=== PATIENT | female | born 1950 | race Caucasian/White ===

== ENCOUNTER → 2020-04-10 13:32 | Outpatient (BNVA) | payer BC, SELFPAY | PROVIDERS: PCP Internal Medicine; Referring Provider Internal Medicine; Visit Provider Internal Medicine Cardiovascular Disease | DX: I47.1 Supraventricular tachycardia (principal); I10 Essential (primary) hypertension; E87.5 Hyperkalemia; Z79.899 Other long term (current) drug therapy | CPT/HCPCS: 93005 ==

== ENCOUNTER 2020-04-25 11:26 | Outpatient (REF) | payer BC, SELFPAY ==
[2020-04-25 14:31] LABS: Estimated Average Glucose 140 mg/dL; Hemoglobin A1c % 6.5 %
[2020-04-25 15:08] LABS: Anion Gap 15 (12-20); Blood Urea Nitrogen 22 mg/dL (9-16); Calcium 9.4 mg/dL (8.4-10.2); Carbon Dioxide 28 mmol/L (22-29); Chloride 103 mmol/L (96-108); Estimated Glomerular Filt Rate > 60; Glucose Random 151 mg/dL (60-115); Potassium 5.9 mmol/l (3.3-5.1); Sodium 140 mmol/L (135-145)
== END 2020-04-25 11:27 | disposition home or self-care (01) ==
LOC: HO.HMGCLDS 11:26
PROVIDERS: PCP Internal Medicine; Visit Provider Internal Medicine
DX: I10 Essential (primary) hypertension (principal); E11.9 Type 2 diabetes mellitus without complications
CPT/HCPCS: 80048; 83036

== ENCOUNTER 2020-05-03 09:48 | Outpatient (REF) | payer BC, SELFPAY ==
[2020-05-03 12:00] LABS: Anion Gap 15 (12-20); Carbon Dioxide 24 mmol/L (22-29); Chloride 103 mmol/L (96-108); Potassium 5.7 mmol/l (3.3-5.1); Sodium 136 mmol/L (135-145)
== END 2020-05-03 09:49 | disposition home or self-care (01) ==
LOC: HO.HMGCLDS 09:48
PROVIDERS: PCP Internal Medicine; Visit Provider Internal Medicine
DX: E87.5 Hyperkalemia (principal)
CPT/HCPCS: 80051

== ENCOUNTER 2020-08-05 19:54 | Emergency (ER) | payer MEDICARE, SELFPAY ==
--- NOTE | ~2020-08-05 | CT_ITS ---
EXAMINATION: CT HEAD WITHOUT CONTRAST CT CERVICAL SPINE WITHOUT CONTRAST CLINICAL INFORMATION: Fall. Head laceration. COMPARISON: None. TECHNIQUE: Imaging was performed from the skull base to vertex without intravenous administration of contrast. In addition, helical noncontrast CT imaging was acquired through the cervical spine and source images were reviewed along with axial reconstructions and sagittal and coronal MPRs. [This CT examination was performed using dose optimization techniques as appropriate, variously including the following: *Automated exposure control *Adjustment of mA and/or kV according to patient size (this includes techniques or standardized protocols for targeted exams where dose is matched to indication/reason for exam; i.e. extremities or head) *Use of iterative reconstruction technique] DLP: 1252 mGy-cm FINDINGS: HEAD: Small scalp hematoma in the right frontal region. There is no skull fracture. No intracranial mass, hemorrhage, or midline shift is visualized. The ventricles and sulci are age-appropriate. No extra-axial collections are identified. The paranasal sinuses and mastoid air cells are well aerated. CERVICAL SPINE: There is no evidence of acute cervical spine fracture. Vertebral bodies remain normal in height. Cervical vertebrae have normal alignment. There is multilevel degenerative spondylosis of the cervical spine with disc height narrowing and endplate spurs and facet joint arthrosis No pre- or paravertebral soft tissue abnormality is identified. Limited assessment of the lung apices is unremarkable. CT/CT cervical spine wo con IMPRESSION: 1. No acute intracranial pathology. 2. No CT evidence of acute cervical spine fracture or traumatic subluxation
--- NOTE | ~2020-08-05 | CT_ITS ---
EXAMINATION: CT HEAD WITHOUT CONTRAST CT CERVICAL SPINE WITHOUT CONTRAST CLINICAL INFORMATION: Fall. Head laceration. COMPARISON: None. TECHNIQUE: Imaging was performed from the skull base to vertex without intravenous administration of contrast. In addition, helical noncontrast CT imaging was acquired through the cervical spine and source images were reviewed along with axial reconstructions and sagittal and coronal MPRs. [This CT examination was performed using dose optimization techniques as appropriate, variously including the following: *Automated exposure control *Adjustment of mA and/or kV according to patient size (this includes techniques or standardized protocols for targeted exams where dose is matched to indication/reason for exam; i.e. extremities or head) *Use of iterative reconstruction technique] DLP: 1252 mGy-cm FINDINGS: HEAD: Small scalp hematoma in the right frontal region. There is no skull fracture. No intracranial mass, hemorrhage, or midline shift is visualized. The ventricles and sulci are age-appropriate. No extra-axial collections are identified. The paranasal sinuses and mastoid air cells are well aerated. CERVICAL SPINE: There is no evidence of acute cervical spine fracture. Vertebral bodies remain normal in height. Cervical vertebrae have normal alignment. There is multilevel degenerative spondylosis of the cervical spine with disc height narrowing and endplate spurs and facet joint arthrosis No pre- or paravertebral soft tissue abnormality is identified. Limited assessment of the lung apices is unremarkable. CT/CT head/brain wo con IMPRESSION: 1. No acute intracranial pathology. 2. No CT evidence of acute cervical spine fracture or traumatic subluxation
[2020-08-05 20:07] VITALS: BP 176/63; PULSE 83; RESP 18; TEMP 36.9; O2SAT 97; BMI 32.8
[2020-08-05 20:38] VITALS: BP 142/77; PULSE 88; RESP 16; O2SAT 97
--- NOTE | 2020-08-05 21:23 | ED.FALL ---
HPI - Fall General Chief Complaint: Fall Stated Complaint: Fall/Lump on head Time Seen by Provider: 08/05/20 21:18 Source: patient Mode of arrival: ambulatory Limitations: no limitations History of Present Illness HPI Narrative: 69-year-old female with past medical history of insulin-dependent diabetes type 2, hypertension, hyperlipidemia, SVT, and depression presents with injury to the right forehead with laceration after a fall. Patient states she tripped over an object landed on her head hitting a ceramic tile floor. She does not describe any prodromal events prior to the fall. She does have some tenderness to the right forehead where her laceration and hematoma is however does not have any headache, neck pain, changes in vision, difficulty swallowing, chest pain or pressure, palpitations, shortness breath, abdominal pain, abdominal distention, back pain, dysuria, hematuria, symptoms indicating cauda equina, loss of balance, or edema. MD complaint: fall Onset (ago): hour(s) (Within the hour of arrival) Fall from: standing Fall witnessed: no Place fall occurred: home Loss of consciousness: none Prolonged down time: no Symptoms prior to fall: none Context: tripped/slipped Location of injury: head Severity: mild Severity scale (1-10): 1 Quality: aching Associated symptoms (after fall): denies Related Data Home Medications Medication Instructions Recorded Confirmed ascorbate calcium (vitamin C) 500 500 mg PO DAILY 04/10/20 04/10/20 mg tablet calcium carbonate 500 mg calcium 500 mg PO DAILY 04/10/20 04/10/20 (1,250 mg) tablet cholecalciferol (vitamin D3) 25 25 mcg PO DAILY 04/10/20 04/10/20 mcg (1,000 unit) capsule glipizide 5 mg tablet 5 mg PO DAILY 04/10/20 04/10/20 insulin glargine 100 unit/mL (3 10 unit SUBCUT QPM 04/10/20 04/10/20 mL) subcutaneous pen lisinopril 10 mg tablet 10 mg PO DAILY 04/10/20 04/10/20 magnesium 250 mg tablet 250 mg PO DAILY 04/10/20 04/10/20 metformin 500 mg tablet 500 mg PO BID 04/10/20 04/10/20 multivitamin-ferrous 1 tab PO DAILY 04/10/20 04/10/20 fumarate-folic acid 18 mg-400 mcg tablet omega 5-rby-pce-fish oil 1,200 mg 1,200 cap PO DAILY cap 04/10/20 04/10/20 (144 mg-216 mg) capsule sertraline 100 mg tablet 150 mg PO DAILY tab 04/10/20 04/10/20 simvastatin 40 mg tablet 40 mg PO BEDTIME 04/10/20 04/10/20 vitamin B12 500 mcg-folic acid 400 1 tab PO DAILY 04/10/20 04/10/20 mcg tablet vitamin E 200 unit capsule 200 unit PO DAILY 04/10/20 04/10/20 zinc 50 mg tablet 50 mg PO DAILY 04/10/20 04/10/20 Allergies Allergy/AdvReac Type Severity Reaction Status Date / Time No Known Allergies Allergy Unverified 02/09/20 16:41 [No Known Allergies*] Review of Systems Review of Systems: Constitutional: No Fever, No Chills ENT/Mouth: No Ear Pain, No Hoarseness, No sore throat Eyes: No Eye Pain, No Swelling, No Redness, No Foreign Body Cardiovascular: No Chest Pain, No SOB Respiratory: No Cough, No Dyspnea Gastrointestinal: No Nausea, No Vomiting, No Diarrhea, No abdominal Pain Genitourinary: No Dysuria, No Hematuria Musculoskeletal: No joint pain, No Myalgias, No Joint Swelling Skin: Positive flap laceration to right forehead, positive hematoma right forehead, No rash Neuro: No Weakness, No Numbness, No Paresthesias, No Loss of Consciousness, No Dizziness, No Headache Psych: No Anxiety/Panic, No Depression Heme/Lymph: no easy bruising, no Lymphadenopathy Endocrine: No Polyuria, No Polydipsia Yes all other systems are reviewed and are negative COUNT INCLUDES THE [facility] Past Medical History Attestation statement: The following information was validated with the patient. Source: old records reviewed Medical History HTN (hypertension) SVT (supraventricular tachycardia) Surgical History History of ankle surgery Family History Family History Father CVD (cardiovascular disease) Mother No problems noted. Social History Social History Alcohol intake: never Smoking Status: Light tobacco smoker Use of substances other than those prescribed or required for medical reasons: No Any prior treatment program specific to substance use: No Advance Directives: No Advance Directives Information Provided: No Physical Exam Vital Signs: Vital Signs: Last Vital Signs Temp 98.4 F 08/05/20 20:07 Pulse 88 08/05/20 20:38 Resp 16 08/05/20 20:38 BP 142/77 H 08/05/20 20:38 Pulse Ox 97 08/05/20 20:38 Body Mass Index 32.8 Appearance: Alert. Oriented X3. No acute distress. Eyes: Pupils equal, round and reactive to light. EOMI, sclera nonicteric ENT: Pharynx normal. Trachea and tongue midline, mucous membranes are moist Neck: Normal inspection. Neck supple. No JVD CVS: Normal heart rate and rhythm. Pulses equal to all extremities with brisk capillary refill Respiratory: No respiratory distress. Lung sounds clear to auscultation all lobes, no chest wall tenderness to palpation, even unlabored respirations Abdomen: Soft and nontender. No abdominal tenderness, no CVA tenderness Skin: 3 cm hematoma with 0.5 cm laceration flap irregular to the right forehead, otherwise Skin warm and dry. Normal skin color. Normal skin turgor. Extremities: No lower extremity edema. Strength 5/5 to all extremities, no crepitus or tenderness to joints, no vertebral tenderness to cervical, thoracic and lumbar spine. Neuro: No motor deficit. No sensory deficit. Cranial nerves 2-12 intact, gait well balanced well coordinated NIH Stroke Scale Internal: Initial- Upon Arrival Time: 21:10 Level of Consciousness: Alert Level of Consciousness Questions: Answers both questions correctly Level of Consciousness Commands: Performs both tasks correctly Best Gaze: Normal Visual: No visual loss Facial Palsy: Normal Motor Arm (Right): No drift Motor Arm (Left): No drift Motor Leg (Right): No drift Motor Leg (Left): No drift Limb Ataxia: Absent Sensory: Normal Best Language: No aphasia Dysarthia: Normal Extinction and Inattention: No abnormality Score: 0 Course Course Course Narrative: 69-year-old female with past medical history of insulin-dependent diabetes type 2, hypertension, hyperlipidemia, SVT, and depression presents with injury to the right forehead with laceration after a mechanical fall. Plan of care is for CT scan of head and cervical spine, laceration repair will be with Steri-Strips as this wound is irregular, superficial, and flap like with 3 cm hematoma. Patient resistant for CT scan of cervical spine and head. After detailed discussion regarding plan patient agrees for CT scan of head and neck, does not want EKG or lab values done. She does not have any chest pain, denies prodromal events prior to tripping and falling, has an even regular rhythm of 88, no respiratory distress. States that she feels well with the exception of the bump on her head. She has excepted the Tdap vaccine. CT scan of cervical spine and head negative for acute findings requiring emergent intervention. Wound repair with Steri-Strips, will give concussion protocol instructions. patient verbalized understanding of and agrees to plan of care discharge home. MDM - Fall Differential Diagnosis Differential diagnosis: Likely syncope, fracture, compression fracture and concussion without loss of consciousness Medical Records Attestation: I reviewed the patient's medical records. Imaging Data CT head neck: Attestation: I personally reviewed and interpreted this imaging study as follows: Radiologist's impression: EXAMINATION: CT HEAD WITHOUT CONTRAST CT CERVICAL SPINE WITHOUT CONTRAST CLINICAL INFORMATION: Fall. Head laceration. COMPARISON: None. TECHNIQUE: Imaging was performed from the skull base to vertex without intravenous administration of contrast. In addition, helical noncontrast CT imaging was acquired through the cervical spine and source images were reviewed along with axial reconstructions and sagittal and coronal MPRs. [This CT examination was performed using dose optimization techniques as appropriate, variously including the following: *Automated exposure control *Adjustment of mA and/or kV according to patient size (this includes techniques or standardized protocols for targeted exams where dose is matched to indication/reason for exam; i.e. extremities or head) *Use of iterative reconstruction technique] DLP: 1252 mGy-cm FINDINGS: HEAD: Small scalp hematoma in the right frontal region. There is no skull fracture. No intracranial mass, hemorrhage, or midline shift is visualized. The ventricles and sulci are age-appropriate. No extra-axial collections are identified. The paranasal sinuses and mastoid air cells are well aerated. CERVICAL SPINE: There is no evidence of acute cervical spine fracture. Vertebral bodies remain normal in height. Cervical vertebrae have normal alignment. There is multilevel degenerative spondylosis of the cervical spine with disc height narrowing and endplate spurs and facet joint arthrosis No pre- or paravertebral soft tissue abnormality is identified. Limited assessment of the lung apices is unremarkable. CT/CT cervical spine wo con IMPRESSION: 1. No acute intracranial pathology. 2. No CT evidence of acute cervical spine fracture or traumatic subluxation Discharge Plan Discharge Clinical Impression: Laceration Concussion Qualifiers: Encounter type: initial encounter Loss of consciousness presence/duration: without LOC Qualified Code(s): S06.0X0A - Concussion without loss of consciousness, initial encounter Patient Disposition: Home, Self-Care Instructions: Laceration (ED), Concussion (ED), Post Concussion Syndrome (ED) Additional Instructions: You were evaluated for head trauma with laceration sustained from a fall. We repaired the laceration with Steri-Strips. Please keep Steri-Strips in place until they fall off. CT scan of your head and neck are negative for acute findings. Your injuries are highly suspicious for concussion. Please follow concussion protocol. You must follow-up with primary care physician within the next week for further follow-up. If you have any symptoms including but not limited to dizziness, lightheadedness, loss of balance, nausea, vomiting, changes in vision, stroke-like symptoms or any other concerning symptoms please return to the emergency department for immediate evaluation. Thank you for choosing this emergency department for evaluation. Please follow-up with primary care physician as needed. Return to the emergency department for any new, concerning, or worsening symptoms. Prescriptions: No Action lisinopril 10 mg tablet 10 mg PO DAILY RF: 0 simvastatin 40 mg tablet 40 mg PO BEDTIME RF: 0 metformin 500 mg tablet 500 mg PO BID RF: 0 glipizide 5 mg tablet 5 mg PO DAILY RF: 0 sertraline 100 mg tablet 150 mg PO DAILY RF: 0 Lantus Solostar U-100 Insulin 100 unit/mL (3 mL) insulin pen 10 unit subcut QPM RF: 0 cholecalciferol (vitamin D3) 25 mcg (1,000 unit) capsule 25 mcg PO DAILY RF: 0 magnesium 250 mg tablet 250 mg PO DAILY RF: 0 zinc 50 mg tablet 50 mg PO DAILY RF: 0 vitamin E 200 unit capsule 200 unit PO DAILY RF: 0 ascorbate calcium (vitamin C) 500 mg tablet 500 mg PO DAILY RF: 0 vitamin C98-pfwaa acid 500-400 mcg tablet 1 tab PO DAILY RF: 0 Centrum Complete 18-400 mg-mcg tablet 1 tab PO DAILY RF: 0 omega 7-dqy-tnj-fish oil [Fish Oil] 1,200 (144-216) mg capsule 1,200 cap PO DAILY RF: 0 calcium carbonate [Calcium 500] 500 mg calcium (1,250 mg) tablet 500 mg PO DAILY RF: 0 Discharge Date/Time: 08/05/20 22:27
== END 2020-08-05 22:27 | disposition home or self-care (01) ==
PROVIDERS: Emergency Provider Internal Medicine; PCP Internal Medicine
DX: S01.81XA Laceration without foreign body of other part of head, initial encounter (principal); S06.0X0A Concussion without loss of consciousness, initial encounter; M54.2 Cervicalgia; E11.9 Type 2 diabetes mellitus without complications; I10 Essential (primary) hypertension; W01.0XXA Fall on same level from slipping, tripping and stumbling without subsequent striking against object, initial encounter; Y93.9 Activity, unspecified; Y92.009 Unspecified place in unspecified non-institutional (private) residence as the place of occurrence of the external cause; Y99.9 Unspecified external cause status; Z79.899 Other long term (current) drug therapy; F17.200 Nicotine dependence, unspecified, uncomplicated; Z71.6 Tobacco abuse counseling; Z79.4 Long term (current) use of insulin
CPT/HCPCS: 70450; 72125; 90471; 90715; 99284

== ENCOUNTER 2020-09-10 11:54 | Outpatient (REF) | payer MEDICARE, SELFPAY ==
[2020-09-10 14:11] LABS: MANUAL DIFF FLAG NO
[2020-09-10 14:24] LABS: Basophils Percent Auto 0.8 % (0-2); Eosinophils Absolute Auto 0.2 X10*3/uL (0.0-0.4); Eosinophils Percent Auto 3.8 % (0-4); Hematocrit 38.7 % (37-47); Hemoglobin 12.6 g/dl (12.0-16.0); Imm Gran Abs Auto 0.01 X10*3/uL (0.00-0.03); Imm Gran Pct Auto 0.2 % (0.0-0.4); Lymphocytes Absolute Auto 1.4 X10*3/uL (1.2-4.9); Lymphocytes Percent Auto 30.6 % (20-40); Mean Corpuscular HGB Conc 32.6 g/dl (31.0-35.0); Mean Corpuscular Hemoglobin 28.1 pg (27.0-33.0); Mean Corpuscular Volume 86.2 fL (80-98); Mean Platelet Volume 10.4 fL (9.4-12.3); Monocytes Absolute Auto 0.4 X10*3/uL (0.1-1.2); Monocytes Percent Auto 8.3 % (2-11); Neutrophils Absolute Auto 2.7 X10*3/uL (2.0-8.3); Neutrophils Percent Auto 56.3 % (45-73); Platelet Count 240 X10*3/uL (160-400); Red Blood Count 4.49 X10*6/uL (4.20-5.50); Red Cell Distribution Width 14.1 % (11.0-16.0); White Blood Count 4.7 X10*3/uL (4.8-10.8)
[2020-09-10 14:28] LABS: Estimated Average Glucose 192 mg/dL; Hemoglobin A1c % 8.3 %
[2020-09-10 14:41] LABS: Alanine Aminotransferase 28 U/L (0-31); Albumin Level 4.7 g/dL (3.5-5.0); Alkaline Phosphatase 64 U/L (39-117); Anion Gap 19 (12-20); Aspartate Amino Transferase 25 U/L (5-31); Bilirubin Total 0.5 mg/dL (0.0-1.0); Blood Urea Nitrogen 25 mg/dL (9-16); Calcium 9.7 mg/dL (8.4-10.2); Carbon Dioxide 24 mmol/L (22-29); Chloride 98 mmol/L (96-108); Estimated Glomerular Filt Rate 53; Glucose Random 286 mg/dL (60-115); Potassium 5.4 mmol/L (3.3-5.1); Sodium 136 mmol/L (135-145); Total Protein 7.6 g/dL (6.5-8.0)
[2020-09-10 14:47] LABS: Creatinine Urine 183.54 mg/dL; Microalbum/Creatinine Ratio Ur 21.7 ug/mg cr
== END 2020-09-10 11:55 | disposition home or self-care (01) ==
LOC: HO.HMGCLDS 11:54
PROVIDERS: PCP Internal Medicine; Visit Provider Internal Medicine
DX: I10 Essential (primary) hypertension (principal); E11.9 Type 2 diabetes mellitus without complications; E78.00 Pure hypercholesterolemia, unspecified
CPT/HCPCS: 36415; 80053; 82043; 83036; 85025

== ENCOUNTER 2021-02-18 10:56 | Outpatient (REF) | payer MEDICARE, SELFPAY ==
[2021-02-18 13:42] LABS: MANUAL DIFF FLAG NO
[2021-02-18 14:02] LABS: Basophils Percent Auto 0.4 % (0-2); Eosinophils Absolute Auto 0.1 X10*3/uL (0.0-0.4); Eosinophils Percent Auto 1.7 % (0-4); Hematocrit 39.5 % (37-47); Hemoglobin 12.5 g/dl (12.0-16.0); Imm Gran Abs Auto 0.02 X10*3/uL (0.00-0.03); Imm Gran Pct Auto 0.4 % (0.0-0.4); Lymphocytes Absolute Auto 1.1 X10*3/uL (1.2-4.9); Lymphocytes Percent Auto 22.6 % (20-40); Mean Corpuscular HGB Conc 31.6 g/dl (31.0-35.0); Mean Corpuscular Hemoglobin 28.2 pg (27.0-33.0); Mean Corpuscular Volume 89.2 fL (80-98); Mean Platelet Volume 10.3 fL (9.4-12.3); Monocytes Absolute Auto 0.3 X10*3/uL (0.1-1.2); Monocytes Percent Auto 6.6 % (2-11); Neutrophils Absolute Auto 3.3 X10*3/uL (2.0-8.3); Neutrophils Percent Auto 68.3 % (45-73); Platelet Count 239 X10*3/uL (160-400); Red Blood Count 4.43 X10*6/uL (4.20-5.50); Red Cell Distribution Width 14.4 % (11.0-16.0); White Blood Count 4.8 X10*3/uL (4.8-10.8)
[2021-02-18 14:10] LABS: Estimated Average Glucose 203 mg/dL; Hemoglobin A1c % 8.7 %
[2021-02-18 14:20] LABS: Creatinine Urine 125.25 mg/dL; Microalbum/Creatinine Ratio Ur 23.9 ug/mg cr
[2021-02-18 14:36] LABS: Alanine Aminotransferase 28 U/L (0-31); Albumin Level 4.6 g/dL (3.5-5.0); Alkaline Phosphatase 56 U/L (39-117); Anion Gap 16 (12-20); Aspartate Amino Transferase 22 U/L (5-31); Bilirubin Total 0.5 mg/dL (0.0-1.0); Blood Urea Nitrogen 23 mg/dL (9-16); Calcium 9.6 mg/dL (8.4-10.2); Carbon Dioxide 24 mmol/L (22-29); Chloride 103 mmol/L (96-108); Estimated Glomerular Filt Rate > 60; Glucose Random 242 mg/dL (60-115); Potassium 5.4 mmol/L (3.3-5.1); Sodium 138 mmol/L (135-145); Total Protein 7.4 g/dL (6.5-8.0)
== END 2021-02-18 10:57 | disposition home or self-care (01) ==
LOC: HO.HMGCLDS 10:56
PROVIDERS: PCP Internal Medicine; Visit Provider Internal Medicine
DX: I12.9 Hypertensive chronic kidney disease with stage 1 through stage 4 chronic kidney disease, or unspecified chronic kidney disease (principal); N18.9 Chronic kidney disease, unspecified; E11.22 Type 2 diabetes mellitus with diabetic chronic kidney disease
CPT/HCPCS: 36415; 80053; 82043; 83036; 85025

== ENCOUNTER → 2021-04-04 13:06 | Outpatient (BNVA) | payer MEDICARE, SELFPAY | PROVIDERS: PCP Internal Medicine; Referring Provider Internal Medicine; Visit Provider Internal Medicine Cardiovascular Disease | DX: I47.1 Supraventricular tachycardia (principal); I10 Essential (primary) hypertension; E78.5 Hyperlipidemia, unspecified | CPT/HCPCS: 93005; 99212 ==

== ENCOUNTER 2021-04-22 10:59 | Outpatient (REF) | payer MEDICARE, SELFPAY ==
[2021-04-22 14:12] LABS: Anion Gap 18 (12-20); Blood Urea Nitrogen 24 mg/dL (9-16); Calcium 9.2 mg/dL (8.4-10.2); Carbon Dioxide 20 mmol/L (22-29); Chloride 106 mmol/L (96-108); Estimated Glomerular Filt Rate 58; Glucose Random 297 mg/dL (60-115); Potassium 4.6 mmol/L (3.3-5.1); Sodium 139 mmol/L (135-145)
== END 2021-04-22 11:00 | disposition home or self-care (01) ==
LOC: HO.HMGCLDS 10:59
PROVIDERS: Visit Provider Internal Medicine Cardiovascular Disease
DX: I10 Essential (primary) hypertension (principal)
CPT/HCPCS: 36415; 80048

== ENCOUNTER 2021-07-09 10:24 | Outpatient (REF) | payer MEDICARE, SELFPAY ==
[2021-07-09 11:34] LABS: MANUAL DIFF FLAG NO
[2021-07-09 11:46] LABS: Basophils Percent Auto 0.7 % (0-2); Eosinophils Absolute Auto 0.2 X10*3/uL (0.0-0.4); Eosinophils Percent Auto 3.2 % (0-4); Hematocrit 40.1 % (37.0-47.0); Hemoglobin 12.6 g/dl (12.0-16.0); Imm Gran Abs Auto 0.02 X10*3/uL (0.00-0.03); Imm Gran Pct Auto 0.3 % (0.0-0.4); Lymphocytes Absolute Auto 1.2 X10*3/uL (1.2-4.9); Lymphocytes Percent Auto 20.5 % (20-40); Mean Corpuscular HGB Conc 31.4 g/dl (31.0-35.0); Mean Corpuscular Hemoglobin 26.8 pg (27.0-33.0); Mean Corpuscular Volume 85.3 fL (80.0-98.0); Mean Platelet Volume 10.3 fL (9.4-12.3); Monocytes Absolute Auto 0.4 X10*3/uL (0.1-1.2); Monocytes Percent Auto 6.9 % (2-11); Neutrophils Percent Auto 68.4 % (45-73); Platelet Count 230 X10*3/uL (160-400); Red Cell Distribution Width 13.4 % (11.0-16.0); White Blood Count 5.9 X10*3/uL (4.8-10.8)
[2021-07-09 12:18] LABS: Alanine Aminotransferase 37 U/L (0-31); Albumin Level 4.4 g/dL (3.5-5.0); Alkaline Phosphatase 80 U/L (39-117); Anion Gap 13 (12-20); Aspartate Amino Transferase 29 U/L (5-31); Bilirubin Total 0.4 mg/dL (0.0-1.0); Blood Urea Nitrogen 20 mg/dL (9-16); Calcium 9.4 mg/dL (8.4-10.2); Carbon Dioxide 29 mmol/L (22-29); Chloride 98 mmol/L (96-108); Cholesterol 228 mg/dL; Estimated Glomerular Filt Rate 59; Glucose Fasting 338 mg/dL (60-99); HDL Cholesterol 53 mg/dL; LDL Cholesterol Calculated 125 mg/dl; Potassium 5.1 mmol/L (3.3-5.1); Sodium 135 mmol/L (135-145); Total Protein 7.3 g/dL (6.5-8.0); Triglycerides 253 mg/dL
[2021-07-09 12:22] LABS: Estimated Average Glucose 295 mg/dL; Hemoglobin A1c % 11.9 %
[2021-07-09 12:31] LABS: Creatinine Urine 159.19 mg/dL; Microalbum/Creatinine Ratio Ur 65.3 ug/mg cr
== END 2021-07-09 10:25 | disposition home or self-care (01) ==
LOC: HO.HMGCLDS 10:24
PROVIDERS: PCP Internal Medicine; Visit Provider Internal Medicine
DX: E11.9 Type 2 diabetes mellitus without complications (principal); E78.00 Pure hypercholesterolemia, unspecified; I10 Essential (primary) hypertension
CPT/HCPCS: 36415; 80053; 80061; 82043; 83036; 85025

== ENCOUNTER 2021-12-23 11:35 | Outpatient (REF) | payer MEDICARE, SELFPAY ==
[2021-12-23 15:14] LABS: Estimated Average Glucose 223 mg/dL; Hemoglobin A1c % 9.4 %
[2021-12-23 15:23] LABS: Alanine Aminotransferase 39 U/L (0-31); Albumin Level 4.7 g/dL (3.5-5.0); Alkaline Phosphatase 59 U/L (39-117); Anion Gap 19 (12-20); Aspartate Amino Transferase 29 U/L (5-31); Bilirubin Total 0.5 mg/dL (0.0-1.0); Blood Urea Nitrogen 21 mg/dL (9-16); Calcium 9.5 mg/dL (8.4-10.2); Carbon Dioxide 21 mmol/L (22-29); Chloride 103 mmol/L (96-108); Estimated Glomerular Filt Rate > 60; Glucose Random 296 mg/dL (60-115); Potassium 4.8 mmol/L (3.3-5.1); Sodium 138 mmol/L (135-145); Total Protein 7.6 g/dL (6.5-8.0)
[2021-12-23 15:35] LABS: Creatinine Urine 239.06 mg/dL; Microalbum/Creatinine Ratio Ur 44.7 ug/mg cr
== END 2021-12-23 11:36 | disposition home or self-care (01) ==
LOC: HO.HMGCLDS 11:35
PROVIDERS: PCP Internal Medicine; Visit Provider Internal Medicine
DX: E11.9 Type 2 diabetes mellitus without complications (principal); I10 Essential (primary) hypertension
CPT/HCPCS: 36415; 80053; 82043; 83036

== ENCOUNTER 2022-04-02 08:59 | Outpatient (REF) | payer MEDICARE, SELFPAY ==
[2022-04-02 11:24] LABS: MANUAL DIFF FLAG NO
[2022-04-02 11:31] LABS: Basophils Percent Auto 0.6 % (0-2); Eosinophils Absolute Auto 0.1 X10*3/uL (0.0-0.4); Eosinophils Percent Auto 2.6 % (0-4); Hematocrit 41.7 % (37.0-47.0); Hemoglobin 13.1 g/dl (12.0-16.0); Imm Gran Abs Auto 0.01 X10*3/uL (0.00-0.03); Imm Gran Pct Auto 0.2 % (0.0-0.4); Lymphocytes Absolute Auto 1.4 X10*3/uL (1.2-4.9); Lymphocytes Percent Auto 28.5 % (20-40); Mean Corpuscular HGB Conc 31.4 g/dl (31.0-35.0); Mean Corpuscular Hemoglobin 27.9 pg (27.0-33.0); Mean Corpuscular Volume 88.9 fL (80.0-98.0); Mean Platelet Volume 10.7 fL (9.4-12.3); Monocytes Absolute Auto 0.4 X10*3/uL (0.1-1.2); Monocytes Percent Auto 7.1 % (2-11); Platelet Count 228 X10*3/uL (160-400); Red Blood Count 4.69 X10*6/uL (4.20-5.50); Red Cell Distribution Width 13.9 % (11.0-16.0); White Blood Count 4.9 X10*3/uL (4.8-10.8)
[2022-04-02 11:45] LABS: Estimated Average Glucose 148 mg/dL; Hemoglobin A1c % 6.8 %
[2022-04-02 12:03] LABS: Alanine Aminotransferase 21 U/L (0-31); Albumin Level 4.6 g/dL (3.5-5.0); Alkaline Phosphatase 62 U/L (39-117); Anion Gap 18 (12-20); Aspartate Amino Transferase 22 U/L (5-31); Bilirubin Total 0.3 mg/dL (0.0-1.0); Blood Urea Nitrogen 12 mg/dL (9-16); Calcium 9.1 mg/dL (8.4-10.2); Carbon Dioxide 24 mmol/L (22-29); Chloride 104 mmol/L (96-108); Cholesterol 166 mg/dL; Estimated Glomerular Filt Rate > 60; Glucose Fasting 102 mg/dL (60-99); HDL Cholesterol 55 mg/dL; LDL Cholesterol Calculated 76 mg/dl; Potassium 4.6 mmol/L (3.3-5.1); Sodium 141 mmol/L (135-145); Total Protein 7.4 g/dL (6.5-8.0); Triglycerides 179 mg/dL
[2022-04-02 12:18] LABS: Microalbum/Creatinine Ratio Ur 69.4 ug/mg cr
== END 2022-04-02 09:00 | disposition home or self-care (01) ==
LOC: HO.HMGCLDS 08:59
PROVIDERS: PCP Internal Medicine; Visit Provider Internal Medicine
DX: E11.9 Type 2 diabetes mellitus without complications (principal); I10 Essential (primary) hypertension; E78.5 Hyperlipidemia, unspecified
CPT/HCPCS: 36415; 80053; 80061; 82043; 83036; 85025

== ENCOUNTER → 2022-04-07 12:48 | Outpatient (BNVA) | payer MEDICARE, SELFPAY | PROVIDERS: PCP Internal Medicine; Referring Provider Internal Medicine; Visit Provider Internal Medicine Cardiovascular Disease | DX: I47.1 Supraventricular tachycardia (principal); I10 Essential (primary) hypertension | CPT/HCPCS: 93005; 99212 ==

== ENCOUNTER 2022-08-11 11:31 | Outpatient (REF) | payer MEDICARE, SELFPAY ==
[2022-08-11 14:35] LABS: Estimated Average Glucose 143 mg/dL; Hemoglobin A1c % 6.6 %
[2022-08-11 14:51] LABS: Alanine Aminotransferase 21 U/L (0-31); Albumin Level 4.8 g/dL (3.5-5.0); Alkaline Phosphatase 62 U/L (39-117); Anion Gap 17 (12-20); Aspartate Amino Transferase 22 U/L (5-31); Bilirubin Total 0.4 mg/dL (0.0-1.0); Blood Urea Nitrogen 22 mg/dL (9-16); Calcium 9.6 mg/dL (8.4-10.2); Carbon Dioxide 26 mmol/L (22-29); Chloride 102 mmol/L (96-108); Estimated Glomerular Filt Rate > 60; Glucose Random 144 mg/dL (60-115); Potassium 5.5 mmol/L (3.3-5.1); Sodium 139 mmol/L (135-145); Total Protein 7.6 g/dL (6.5-8.0)
[2022-08-11 15:02] LABS: Creatinine Urine 216.77 mg/dL; Microalbum/Creatinine Ratio Ur 23.5 ug/mg cr
== END 2022-08-11 11:32 | disposition home or self-care (01) ==
LOC: HO.HMGCLDS 11:31
PROVIDERS: PCP Internal Medicine; Visit Provider Internal Medicine
DX: E11.9 Type 2 diabetes mellitus without complications (principal); I10 Essential (primary) hypertension
CPT/HCPCS: 36415; 80053; 82043; 83036

== ENCOUNTER 2022-11-03 12:14 | Outpatient (REF) | payer MEDICARE, SELFPAY ==
[2022-11-03 14:22] LABS: Anion Gap 14 (12-20); Blood Urea Nitrogen 23 mg/dL (9-16); Calcium 9.8 mg/dL (8.4-10.2); Carbon Dioxide 27 mmol/L (22-29); Chloride 103 mmol/L (96-108); Estimated Glomerular Filt Rate > 60; Glucose Random 136 mg/dL (60-115); Sodium 139 mmol/L (135-145)
[2022-11-03 14:23] LABS: Estimated Average Glucose 137 mg/dL; Hemoglobin A1c % 6.4 %
== END 2022-11-03 12:15 | disposition home or self-care (01) ==
LOC: HO.HMGCLDS 12:14
PROVIDERS: PCP Internal Medicine; Visit Provider Internal Medicine
DX: E11.9 Type 2 diabetes mellitus without complications (principal); I10 Essential (primary) hypertension
CPT/HCPCS: 36415; 80048; 83036

== ENCOUNTER 2023-03-03 12:34 | Outpatient (REF) | payer MEDICARE, SELFPAY | END 2023-03-03 12:35 | disposition home or self-care (01) | LOC: HO.HMGCLDS 12:34 | PROVIDERS: PCP Internal Medicine; Visit Provider Internal Medicine | DX: I10 Essential (primary) hypertension (principal); E11.9 Type 2 diabetes mellitus without complications; E78.00 Pure hypercholesterolemia, unspecified | CPT/HCPCS: 36415; 80053; 80061; 82043; 82570; 83036; 85025 ==

== ENCOUNTER 2023-04-20 12:42 | Outpatient (AMB) | payer MEDICARE, SELFPAY ==
--- NOTE | 2023-04-20 13:02 | A.OFFVIS_ITS ---
Intake Vital Signs 04/20/23 13:03 04/20/23 13:03 Height 5 ft 7 in 5 ft 7 in Weight 207 lb 3.752 oz BMI 32.5 BP 140/72 H Blood Pressure Location Lt brachial Lt brachial Position Sitting Sitting Pulse 75 Intake Visit Reasons: 1 year fu Intake Note: 1 year follow-up feeling good Receivables Specialist Required: No Allergies No Known Allergies [No Known Allergies*] Allergy (Unverified 02/09/20 16:41) Medication List - Last Reconciled 04/20/23 by Dain Siddiqui MD amlodipine 5 mg PO DAILY ascorbate calcium (vitamin C) 500 mg PO DAILY atorvastatin 20 mg PO DAILY calcium carbonate (Calcium 500) 500 mg PO DAILY cholecalciferol (vitamin D3) 25 mcg PO DAILY glipizide 5 mg PO DAILY insulin glargine (Lantus Solostar U-100 Insulin) 10 units subcut QPM magnesium 250 mg PO DAILY magnesium 250 mg PO DAILY metformin ER 750 mg PO BID gcaqvfuzgdqz-zrgx-mmtdc acid 18-400 mg-mcg (Centrum Complete) 1 tab PO DAILY omega 9-eok-fxh-fish oil 1,200 (144-216) mg (Fish Oil) 1,200 caps PO DAILY sertraline 150 mg PO DAILY venlafaxine ER 150 mg PO DAILY vitamin R68-svuqh acid 500-400 mcg 1 tab PO DAILY vitamin E 200 units PO DAILY zinc 50 mg PO DAILY HPI HPI Comments History of Present Illness Details Tonic comes for follow-up. She has been doing very well from cardiac perspective. No episodes of SVT with no episodes of rapid heart rate or palpitations. She has been monitor EKG on a daily basis. Also a blood pressure is well controlled as per her. She denies any exertional chest pain or shortness of breath. Remains very active. Denies any lightheadedness, syncope. [facility] Medical History Hyperlipidemia Diabetes SVT (supraventricular tachycardia) HTN (hypertension) Surgical History History of ankle surgery Family History Father CVD (cardiovascular disease) Mother No problems noted. Alcohol intake: never Review of Systems Const Denies chills, Denies fatigue, Denies fever(s), Denies frequent falls, Denies weakness, Denies weight gain and Denies weight loss ENT Denies dizziness Card Denies chest pain, Denies leg edema, Denies lightheadedness, Denies palpitations, Denies dyspnea, Denies dyspnea on exertion, Denies orthopnea and Denies other (loss of consciousness) Resp Denies cough, Denies dyspnea and Denies dyspnea on exertion GI Denies hematochezia and Denies change in stool character Musc Denies abnormal gait, Denies muscle weakness, Denies numbness, Denies radiating pain into limb and Denies tingling Neuro Denies abnormal gait, Denies dizziness, Denies frequent falls, Denies numbness, Denies tingling and Denies weakness Endo Denies fatigue and Denies palpitations Physical Exam Vital Signs: Last Vital Signs Pulse 75 04/20/23 13:03 BP 140/72 H 04/20/23 13:03 BMI result Body Mass Index 32.5 Const General: cooperative, healthy appearing, comfortable, no acute distress, alert and awake Nutritional Appearance: obese Orientation/consciousness: patient oriented x3 Limitations: no limitations Neck Neck: Yes normal visual inspection, Yes trachea midline, Yes supple and Yes no JVD Chest Chest palpation & inspection: normal inspection of the chest Resp Effort & Inspection: normal respiratory effort Auscultation: clear to auscultation bilaterally Cardio Jugular venous distension: no JVD Palpation: normal PMI Rate: regular rate Rhythm: regular rhythm Heart sounds: S1 normal heart sound present, S2 normal heart sound present and Other heart sounds present Peripheral pulses: Peripheral pulses 2+ throughout GI Inspection: Yes obesity Auscultation: normal bowel sounds Skin General skin exam: no rashes or lesions noted Neuro General: patient oriented x3 and no focal motor deficits Extrem General: Yes no clubbing, cyanosis or edema Psych Appearance: grossly normal Office Procedures EKG Details: EKG shows normal sinus rhythm normal EKG at 75 beats per minute [id number], Complete Assessment & Plan Assessment & Plan (1) SVT (supraventricular tachycardia): Code(s): I47.1 - Supraventricular tachycardia Plan: Supraventricular tachycardia which highly symptomatic but has remained suppressed without any rate lowering medication. She has done well with management of SVT. Discussed vagal maneuvers with her again. Discussed about avoidance of stimulants. Advised to call me with any new symptoms. No change in therapy at this point in time. (2) HTN (hypertension): Code(s): I10 - Essential (primary) hypertension Plan: Hypertension, borderline elevated today. Although she says at home a blood pressures was generally well controlled. She has no current exertional symptoms. Continue aggressive vascular risk factor modification. Currently on statin therapy with target goal LDL less than 70 mg/dL being pursue 3 our office. Continue aggressive management diabetes goal hemoglobin A1c less than 7%. Encouraged to continue to participate in physical activity as tolerated. Advised to call with any exertional symptoms. Follow up in the clinic in 1 year's time, sooner p.r.n.. Thank you for allowing me to partake in the care Coding Level of Care Code Est Pt Level 4 (02218) Diagnoses SVT (supraventricular tachycardia) I47.1 HTN (hypertension) I10 CPT Codes EKG - CPT: 84257-[id number], Complete ([id number])
[2023-04-20 13:03] VITALS: BP 140/72; PULSE 75; BMI 32.5
--- NOTE | 2023-04-20 13:03 | A.OFFVIS_ITS ---
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 Required: No Allergies No Known Allergies [No Known Allergies*] Allergy (Unverified 02/09/20 16:41) Medication List - Last Reconciled 04/20/23 by Dain Siddiqui MD amlodipine 5 mg PO DAILY ascorbate calcium (vitamin C) 500 mg PO DAILY atorvastatin 20 mg PO DAILY calcium carbonate (Calcium 500) 500 mg PO DAILY cholecalciferol (vitamin D3) 25 mcg PO DAILY glipizide 5 mg PO DAILY insulin glargine (Lantus Solostar U-100 Insulin) 10 units subcut QPM magnesium 250 mg PO DAILY magnesium 250 mg PO DAILY metformin ER 750 mg PO BID ssqobjjulcka-osoi-slbid acid 18-400 mg-mcg (Centrum Complete) 1 tab PO DAILY omega 9-ymw-tyq-fish oil 1,200 (144-216) mg (Fish Oil) 1,200 caps PO DAILY sertraline 150 mg PO DAILY venlafaxine ER 150 mg PO DAILY vitamin G39-boeem acid 500-400 mcg 1 tab PO DAILY vitamin E 200 units PO DAILY zinc 50 mg PO DAILY [facility] Medical History Diabetes HTN (hypertension) Hyperlipidemia SVT (supraventricular tachycardia) Surgical History History of ankle surgery Family History Father CVD (cardiovascular disease) Mother No problems noted. Alcohol intake: never Review of Systems Const Denies chills, Denies fatigue, Denies fever(s), Denies frequent falls, Denies weakness, Denies weight gain and Denies weight loss ENT Denies dizziness Card Denies chest pain, Denies leg edema, Denies lightheadedness, Denies palpitations, Denies dyspnea, Denies dyspnea on exertion, Denies orthopnea and Denies other (loss of consciousness) Resp Denies cough, Denies dyspnea and Denies dyspnea on exertion GI Denies hematochezia and Denies change in stool character Musc Denies abnormal gait, Denies muscle weakness, Denies numbness, Denies radiating pain into limb and Denies tingling Neuro Denies abnormal gait, Denies dizziness, Denies frequent falls, Denies numbness, Denies tingling and Denies weakness Endo Denies fatigue and Denies palpitations Physical Exam Vital Signs: Last Vital Signs Pulse 75 04/20/23 13:03 BP 140/72 H 04/20/23 13:03 BMI result Body Mass Index 32.5 Coding
== END 2023-04-20 13:30 | disposition home or self-care (01) ==
PROVIDERS: Visit Provider Internal Medicine Cardiovascular Disease
DX: I47.1 Supraventricular tachycardia (principal); I10 Essential (primary) hypertension
CPT/HCPCS: 93010; 99214

== ENCOUNTER → 2023-04-20 12:42 | Outpatient (BNVA) | payer MEDICARE, SELFPAY | PROVIDERS: Visit Provider Internal Medicine Cardiovascular Disease | DX: I47.10 Supraventricular tachycardia, unspecified (principal); I10 Essential (primary) hypertension | CPT/HCPCS: 93005; 99212 ==

== ENCOUNTER 2023-06-30 13:16 | Outpatient (REF) | payer MEDICARE, SELFPAY ==
[2023-06-30 16:23] LABS: MANUAL DIFF FLAG NO
[2023-06-30 16:31] LABS: Basophils Percent Auto 0.8 % (0-2); Eosinophils Absolute Auto 0.1 X10*3/uL (0.0-0.4); Eosinophils Percent Auto 1.9 % (0-4); Hematocrit 39.4 % (37.0-47.0); Hemoglobin 12.8 g/dl (12.0-16.0); Imm Gran Abs Auto 0.02 X10*3/uL (0.00-0.03); Imm Gran Pct Auto 0.4 % (0.0-0.4); Lymphocytes Absolute Auto 1.5 X10*3/uL (1.2-4.9); Lymphocytes Percent Auto 29.9 % (20-40); Mean Corpuscular HGB Conc 32.5 g/dl (31.0-35.0); Mean Corpuscular Hemoglobin 28.8 pg (27.0-33.0); Mean Corpuscular Volume 88.5 fL (80.0-98.0); Monocytes Absolute Auto 0.3 X10*3/uL (0.1-1.2); Monocytes Percent Auto 6.8 % (2-11); Neutrophils Absolute Auto 2.9 x10*3/uL (2.0-8.3); Neutrophils Percent Auto 60.2 % (45-73); Platelet Count 221 X10*3/uL (160-400); Red Blood Count 4.45 X10*6/uL (4.20-5.50); Red Cell Distribution Width 14.2 % (11.0-16.0); White Blood Count 4.9 X10*3/uL (4.8-10.8)
[2023-06-30 16:43] LABS: Creatinine Urine 119.35 mg/dL; Microalbum/Creatinine Ratio Ur 43.5 ug/mg cr (<30)
[2023-06-30 16:44] LABS: Alanine Aminotransferase 20 U/L (0-31); Albumin Level 4.5 g/dL (3.5-5.0); Alkaline Phosphatase 61 U/L (39-117); Anion Gap 15 (12-20); Aspartate Amino Transferase 20 U/L (5-31); Bilirubin Total 0.3 mg/dL (0.0-1.0); Blood Urea Nitrogen 22 mg/dL (9-16); Calcium 9.6 mg/dL (8.4-10.2); Carbon Dioxide 27 mmol/L (22-29); Chloride 102 mmol/L (96-108); Estimated Glomerular Filt Rate > 60; Glucose Random 111 mg/dL (60-115); Potassium 4.9 mmol/L (3.3-5.1); Sodium 139 mmol/L (135-145); Total Protein 7.4 g/dL (6.5-8.0)
[2023-06-30 16:57] LABS: Estimated Average Glucose 143 mg/dL; Hemoglobin A1c % 6.6 % (<6.0)
== END 2023-06-30 13:17 | disposition home or self-care (01) ==
LOC: HO.HMGCLDS 13:16
PROVIDERS: PCP Internal Medicine; Visit Provider Internal Medicine
DX: E11.9 Type 2 diabetes mellitus without complications (principal); I10 Essential (primary) hypertension; K21.9 Gastro-esophageal reflux disease without esophagitis
CPT/HCPCS: 36415; 80053; 82043; 82570; 83036; 85025

== ENCOUNTER 2023-07-10 13:57 | Outpatient (AMB) | payer MEDICARE, SELFPAY ==
[2023-07-10 13:58] VITALS: BP 160/80; PULSE 92; TEMP 36.3; O2SAT 96; BMI 32.4
--- NOTE | 2023-07-10 13:58 | AM.OFFWIN_ITS ---
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 She states she got out of bed to use the bathroom and tripped on an object on the floor causing her to fall forward and hit her head on the floor. She mostly hit her right eye but she is not sure what she hit her eye on. She reports some blurry vision but denies any vision loss. She denies any headaches or nausea/vomiting. She feels as though there is something stuck in her eye. FOR[facility]LY [facility], LATER [facility] Medical History Hyperlipidemia Diabetes SVT (supraventricular tachycardia) HTN (hypertension) Surgical History History of ankle surgery Family History Father CVD (cardiovascular disease) Mother No problems noted. Social History Alcohol intake: never Patient Tobacco Use Status: Never used Tobacco Review of Systems Const All systems reviewed & are unremarkable except as noted in HPI and below Reports no additional complaints Eyes Reports no additional complaints ENT Reports no additional complaints Card Reports no additional complaints Resp Reports no additional complaints GI Reports no additional complaints Reports no additional complaints Musc Reports no additional complaints Skin/Breast Reports system reviewed and no additional complaints, except as documented Neuro Reports no additional complaints Psych Reports no additional complaints Endo Reports no additional complaints Neftali/Lymph Reports no additional complaints Aller/Immun Reports no additional complaints Physical Exam Vital Signs: Last Vital Signs Temp 97.3 F 02/16/24 13:58 Pulse 92 07/10/23 13:58 BP 160/80 H 07/10/23 13:58 Pulse Ox 96 07/10/23 13:58 Oxygen Delivery Method Room Air 07/10/23 13:58 BMI result Body Mass Index 32.4 Const Other: Vital signs reviewed. Constitutional: Non-toxic appearing. No acute distress. Well-developed and well-nourished. HEENT: There is right periorbital swelling and erythema. There is conjunctival injection of the right eye with multiple areas of what appear to be subconjunctival hemorrhage. There is a small abrasion with mild swelling and erythema to her right forehead. Skin: Warm and dry. No rashes or lesions noted. Neck: Full and painless range of motion. No cervical lymphadenopathy. Cardio: Regular rate and rhythm. No murmurs, gallops, or rubs. No lower extremity edema. No JVD. Pulmonary: No respiratory distress. No accessory muscle usage. Clear to auscultation bilaterally without wheezing, crackles, or rhonchi. Gastrointestinal: Soft, nontender, and nondistended in all 4 quadrants. Musculoskeletal: Normal range of motion in joints throughout the body. Neuro: Alert and oriented x4. Cranial nerves 2-12 grossly intact. No focal deficits appreciated. Psych: Normal mood and affect. Assessment & Plan Assessment & Plan (1) Head injury: Code(s): S09.90XA - Unspecified injury of head, initial encounter (2) Fall: Code(s): W19.XXXA - Unspecified fall, initial encounter (3) Subconjunctival hemorrhage: Code(s): H11.30 - Conjunctival hemorrhage, unspecified eye Plan This is a 72-year-old female who presented to the walk-in clinic following a mechanical fall that occurred last night. Patient states she tripped on something while getting out of bed last night causing her to fall forward and hit her head/on the floor. On physical examination, there is a small abrasion to her right forehead with mild swelling and ecchymosis as well as right periorbital swelling/erythema and conjunctival injection with subconjunctival hemorrhages of the right eye. I recommended that patient proceed directly to the emergency room given the extent/mechanism of her injury for possible CT head as well as a thorough ophthalmologic examination to rule out corneal abrasion/globe rupture. Patient agreed to proceed directly to the emergency room with her . Coding Level of Care Code Est Pt Level 3 (34798) Diagnoses Head injury S09.90XA Fall W19.XXXA Subconjunctival hemorrhage H11.30
== END 2023-07-10 14:25 | disposition home or self-care (01) ==
PROVIDERS: PCP Internal Medicine; Visit Provider Physician Assistant Medical
DX: S09.90XA Unspecified injury of head, initial encounter (principal); W19.XXXA Unspecified fall, initial encounter; H11.30 Conjunctival hemorrhage, unspecified eye
CPT/HCPCS: 99213

== ENCOUNTER 2023-07-10 14:25 | Emergency (ER) | payer MEDICARE, SELFPAY ==
--- NOTE | ~2023-07-10 | CT_ITS ---
EXAMINATION: CT HEAD WITHOUT CONTRAST CT CERVICAL SPINE WITHOUT CONTRAST CLINICAL INFORMATION: Fall with head strike. COMPARISON: CT head and cervical spine 08/05/2020. TECHNIQUE: Senior Quality Analyst images were obtained. CT imaging of the head and cervical spine was performed without contrast. Data was reformatted into multiplanar images at the acquisition workstation. This CT examination was performed using dose optimization techniques as appropriate, including one or more of the following: Automated exposure control, iterative reconstruction, and adjustment of technique factors (mA and/or kVp) according to patient size (this includes techniques or standardized protocols for targeted exams where dose is matched to indication/reason for exam). Fleischner Society criteria for the followup of incidental pulmonary nodules was implemented if appropriate. DLP: 1080 mGy-cm. FINDINGS: Head: There is no acute intracranial hemorrhage or abnormal extra-axial collection. No intracranial mass effect or midline shift. Lateral and third ventricles are normal. No hydrocephalus. Dominguez-white matter differentiation is grossly preserved and there is no evidence of acute territorial infarct. The calvarium and skull base are intact. Mastoid air cells and middle ear cavities are well aerated. No active paranasal sinus disease. Cervical spine: There is nonspecific straightening of the cervical lordosis. Alignment is otherwise normal. Vertebral heights are preserved. No acute fracture. No abnormal prevertebral soft tissue swelling. There is loss of intervertebral disc height with associated sclerotic degenerative endplate changes and hypertrophic disc osteophyte spurring at multiple levels. Grossly no spinal canal compromise. Uncovertebral joint spurring and conjunction with facet degenerative change causes severe left neuroforaminal encroachment at C6-C7. Mild/moderate neuroforaminal encroachment at multiple additional levels. Visualized soft tissues of the neck reveal heavily calcified atheromatous plaque at the carotid bifurcations. Pleural parenchymal scarring is visualized at the apex of the left lung. Grossly no pathologically enlarged cervical lymph nodes. CT/CT cervical spine wo IV con IMPRESSION: Head: No acute intracranial hemorrhage. No evidence of acute territorial infarct. Cervical Spine: No evidence of acute fracture and no posttraumatic spinal subluxation. There is advanced multilevel degenerative spondylosis of the cervical spine with severe left neuroforaminal encroachment at C6-C7.
--- NOTE | ~2023-07-10 | CT_ITS ---
EXAMINATION: CT HEAD WITHOUT CONTRAST CT CERVICAL SPINE WITHOUT CONTRAST CLINICAL INFORMATION: Fall with head strike. COMPARISON: CT head and cervical spine 08/05/2020. TECHNIQUE: Mine Superintendent images were obtained. CT imaging of the head and cervical spine was performed without contrast. Data was reformatted into multiplanar images at the acquisition workstation. This CT examination was performed using dose optimization techniques as appropriate, including one or more of the following: Automated exposure control, iterative reconstruction, and adjustment of technique factors (mA and/or kVp) according to patient size (this includes techniques or standardized protocols for targeted exams where dose is matched to indication/reason for exam). Fleischner Society criteria for the followup of incidental pulmonary nodules was implemented if appropriate. DLP: 1080 mGy-cm. FINDINGS: Head: There is no acute intracranial hemorrhage or abnormal extra-axial collection. No intracranial mass effect or midline shift. Lateral and third ventricles are normal. No hydrocephalus. Dominguez-white matter differentiation is grossly preserved and there is no evidence of acute territorial infarct. The calvarium and skull base are intact. Mastoid air cells and middle ear cavities are well aerated. No active paranasal sinus disease. Cervical spine: There is nonspecific straightening of the cervical lordosis. Alignment is otherwise normal. Vertebral heights are preserved. No acute fracture. No abnormal prevertebral soft tissue swelling. There is loss of intervertebral disc height with associated sclerotic degenerative endplate changes and hypertrophic disc osteophyte spurring at multiple levels. Grossly no spinal canal compromise. Uncovertebral joint spurring and conjunction with facet degenerative change causes severe left neuroforaminal encroachment at C6-C7. Mild/moderate neuroforaminal encroachment at multiple additional levels. Visualized soft tissues of the neck reveal heavily calcified atheromatous plaque at the carotid bifurcations. Pleural parenchymal scarring is visualized at the apex of the left lung. Grossly no pathologically enlarged cervical lymph nodes. CT/CT head/brain wo IV con IMPRESSION: Head: No acute intracranial hemorrhage. No evidence of acute territorial infarct. Cervical Spine: No evidence of acute fracture and no posttraumatic spinal subluxation. There is advanced multilevel degenerative spondylosis of the cervical spine with severe left neuroforaminal encroachment at C6-C7.
[2023-07-10 15:17] VITALS: BP 179/70; PULSE 87; RESP 18; TEMP 36.4; O2SAT 95; BMI 32.3
--- NOTE | 2023-07-10 15:20 | ED_ITS ---
HPI - Eye Problem General Chief complaint: Fall Stated complaint: fall, eye injury Time Seen by Provider: 07/10/23 18:36 Source: patient, RN notes reviewed and old records reviewed Mode of arrival: ambulatory Limitations: no limitations History of Present Illness HPI Narrative: 72-year-old female presents for evaluation of right eye pain. Patient reports that yesterday she tripped and fell out of bed She struck her head against the ground. There was no loss of consciousness She states that she has had worsening right eye pain and redness ever since Her states that the redness around her eyes actually improving The patient has been using ice packs and she thinks that maybe why the area around her eye is red She does not wear contacts Related Data Home Medications Medication Instructions Recorded Confirmed ascorbate calcium (vitamin C) 500 500 mg PO DAILY 04/10/20 04/20/23 mg tablet calcium carbonate 500 mg calcium 500 mg PO DAILY 04/10/20 04/20/23 (1,250 mg) tablet (Calcium 500) cholecalciferol (vitamin D3) 25 25 mcg PO DAILY 04/10/20 04/20/23 mcg (1,000 unit) capsule glipizide 5 mg tablet 5 mg PO DAILY 04/10/20 04/20/23 insulin glargine 100 unit/mL (3 10 unit subcut QPM 04/10/20 04/20/23 mL) subcutaneous pen (Lantus Solostar U-100 Insulin) multivitamin-ferrous 1 tab PO DAILY 04/10/20 04/20/23 fumarate-folic acid 18 mg-400 mcg tablet (Centrum Complete) omega 2-caa-fvk-fish oil 1,200 mg 1,200 cap PO DAILY 04/10/20 04/20/23 (144 mg-216 mg) capsule (Fish Oil) sertraline 100 mg tablet 150 mg PO DAILY 04/10/20 04/20/23 vitamin B12 500 mcg-folic acid 400 1 tab PO DAILY 04/10/20 04/20/23 mcg tablet vitamin E 200 unit capsule 200 unit PO DAILY 04/10/20 04/20/23 zinc 50 mg tablet 50 mg PO DAILY 04/10/20 04/20/23 metformin 750 mg tablet,extended 750 mg PO BID 04/07/22 04/20/23 release 24 hr venlafaxine 150 mg 150 mg PO DAILY 04/07/22 04/20/23 capsule,extended release 24 hr magnesium 250 mg tablet 250 mg PO DAILY 04/20/23 04/20/23 Previous Rx's Medication Instructions Recorded amlodipine 5 mg tablet 5 mg PO DAILY #30 tabs 04/04/21 atorvastatin 20 mg tablet 20 mg PO DAILY #30 tabs 04/04/21 erythromycin 5 mg/gram (0.5 %) eye 0.5 inch ophthalmic (eye) TID 5 07/10/23 ointment days #3.5 grams Allergies Allergy/AdvReac Type Severity Reaction Status Date / Time No Known Allergies Allergy Verified 07/10/23 15:21 [No Known Allergies*] Review of Systems Constitutional: Constitutional: Reports headache(s) Eyes: Eyes: Reports blurry vision and Reports eye pain ENT: Reports headache(s) Neurologic: Reports headache(s) [facility] Past Medical History Medical History Hyperlipidemia Diabetes SVT (supraventricular tachycardia) HTN (hypertension) Surgical History History of ankle surgery Family History Family History Father CVD (cardiovascular disease) Mother No problems noted. Social History Social History Alcohol intake: never Patient Tobacco Use Status: Never used Tobacco Advance Directives: No Advance Directives Information Provided: No Physical Exam Vital Signs: Vital Signs: Last Vital Signs Temp 97.6 F 07/10/23 15:17 Pulse 87 07/10/23 15:17 Resp 18 07/10/23 15:17 BP 179/70 H 07/10/23 15:17 Pulse Ox 95 07/10/23 15:17 O2 Del Method Room Air 07/10/23 15:17 BMI result Body Mass Index 32.3 Const: General: healthy appearing, comfortable, no acute distress, alert and awake Nutritional Appearance: well nourished Orientation/consciousness: patient oriented x3 HEENT: Head: Yes normocephalic and Yes atraumatic Eyes: General: appearance abnormal, both eyes Visual Broussard: normal visual broussard by confrontation Alignment and Position: alignment normal Periorbital: periorbital findings abnormal (Patient's faint right periorbital erythema and mild edema.) Eyelids: Yes eyelids normal Conjunctivae: conjunctival abnormal right conjunctival injection; without chemosis Corneas: corneas abnormal (Positive right corneal abrasion or fluorescein stain. Negative Batool sign); abnormal corneas Pupils: Equal, round and reactive pupils present EOM: EOMs intact bilaterally Neck: Neck: Yes full ROM Resp: Effort & Inspection: normal respiratory effort, able to speak in complete sentences and not labored Skin: General skin exam: elasticity normal Neuro: General: patient oriented x3 Cranial nerves: Yes Equal, round and reactive pupils present and Yes Bilaterally intact EOM present Cognition (Neuro): normal cognition Course Course Course Narrative: RME:?72 yo female here for eval of right eye pain after tripping and falling last night. reports hitting her right eye on an unknown object. No LOC. Not on AC. now reports red/ scratchy feeling to right eye. blurred vision. Denies neck or back pain, nausea vomiting, headache, dizziness. Subconjunctival hemorrhage to right eye. EOMs intact without entrapment or pain. Visual acuity, fluorescein, tetracaine ordered. Full HPI, ROS and PE to be performed by the primary ED provider. Medications Administered Discontinued Medications Generic Name Dose Route Start Last Admin Trade Name Freq PRN Reason Stop Dose Admin Erythromycin 1 cm 07/10/23 18:55 07/10/23 19:09 Erythromycin Base 0.5% Oph Oin 1 Gm Tube EYE-RIGHT 07/10/23 18:56 1 cm ONCE ONE Administration Fluorescein Sodium 1 strip 07/10/23 15:22 07/10/23 18:55 Fluorescein Sodium Strip EYE-RIGHT 07/10/23 15:23 1 strip ONCE ONE Administration Tetracaine HCl 1 drop 07/10/23 15:22 07/10/23 18:55 Tetracaine Hcl/Pf 0.5% Oph Estefanía 4 Ml Drops EYE-RIGHT 07/10/23 15:23 1 drop ONCE ONE Administration Medical Decision Making Medical Decision Making [facility] Narrative: 72-year-old female presents for evaluation of right eye pain after a fall last night. This was a nonsyncopal fall. She had imaging of the CT brain and CT cervical spine ordered from triage. These were negative studies. No evidence of traumatic injury. Patient's fluorescein stain showed a very clear corneal abrasion covering most of the iris of the right eye. No suspicion for globe rupture. Will treat with erythromycin ointment. No obvious retained foreign body Differential Diagnosis Differential Diagnoses: The differential diagnosis associated with the presentation includes Corneal abrasion Conjunctivitis Blepharitis Globe injury Discharge Plan Discharge Clinical Impression: Corneal abrasion, right Patient Disposition: Home, Self-Care Instructions: Corneal Abrasion (ED) Additional Instructions: Use erythromycin eye ointment 3 times a day for 5 days Apply warm compresses You may use Motrin or Tylenol for pain Return for new or worsening symptoms Prescriptions: New erythromycin 5 mg/gram (0.5 %) ointment 0.5 inch ophthalmic (eye) TID 5 Days Qty: 3.5 0RF No Action glipizide 5 mg tablet 5 mg PO DAILY sertraline 100 mg tablet 150 mg PO DAILY Lantus Solostar U-100 Insulin 100 unit/mL (3 mL) insulin pen 10 unit subcut QPM cholecalciferol (vitamin D3) 25 mcg (1,000 unit) capsule 25 mcg PO DAILY zinc 50 mg tablet 50 mg PO DAILY vitamin E 200 unit capsule 200 unit PO DAILY ascorbate calcium (vitamin C) 500 mg tablet 500 mg PO DAILY vitamin S34-qtxfk acid 500-400 mcg tablet 1 tab PO DAILY Rx Instructions: administer with a meal Centrum Complete 18-400 mg-mcg tablet 1 tab PO DAILY omega 7-hae-cen-fish oil [Fish Oil] 1,200 (144-216) mg capsule 1,200 cap PO DAILY calcium carbonate [Calcium 500] 500 mg calcium (1,250 mg) tablet 500 mg PO DAILY amlodipine 5 mg tablet 5 mg PO DAILY Qty: 30 5RF atorvastatin 20 mg tablet 20 mg PO DAILY Qty: 30 5RF venlafaxine 150 mg capsule,extended release 24hr 150 mg PO DAILY metformin 750 mg tablet extended release 24 hr 750 mg PO BID magnesium 250 mg tablet 250 mg PO DAILY Interventions: ED Discharge Assessment Last Done: 07/10/23 19:12 Discharge Date/Time: 07/10/23 19:13
[2023-07-10] MEDS: Fluorescein Sodium STRIP 1 STRIP EYE-RIGHT (18:55)
[2023-07-10] MEDS: Tetracaine HCl/PF 0.5% Oph Sol 4 ML DROPS 1 DROP EYE-RIGHT (18:55)
[2023-07-10] MEDS: Erythromycin Base 0.5% Oph Oin 1 GM TUBE 1 CM EYE-RIGHT (19:09)
== END 2023-07-10 19:13 | disposition home or self-care (01) ==
PROVIDERS: Emergency Provider Emergency Medicine
DX: S05.01XA Injury of conjunctiva and corneal abrasion without foreign body, right eye, initial encounter (principal); M54.2 Cervicalgia; R51.9 Headache, unspecified; W01.10XA Fall on same level from slipping, tripping and stumbling with subsequent striking against unspecified object, initial encounter; Y93.9 Activity, unspecified; Y92.003 Bedroom of unspecified non-institutional (private) residence as the place of occurrence of the external cause; Y99.8 Other external cause status
CPT/HCPCS: 70450; 72125; 99282; 99284

== ENCOUNTER 2023-10-27 13:01 | Outpatient (REF) | payer MEDICARE, SELFPAY ==
[2023-10-27 16:00] LABS: MANUAL DIFF FLAG NO
[2023-10-27 16:14] LABS: Basophils Absolute Auto 0.1 X10*3/uL (0.0-0.2); Basophils Percent Auto 1.1 % (0-2); Eosinophils Absolute Auto 0.1 X10*3/uL (0.0-0.4); Eosinophils Percent Auto 2.3 % (0-4); Hematocrit 40.8 % (37.0-47.0); Hemoglobin 13.2 g/dl (12.0-16.0); Imm Gran Abs Auto 0.01 X10*3/uL (0.00-0.03); Imm Gran Pct Auto 0.2 % (0.0-0.4); Lymphocytes Absolute Auto 1.5 X10*3/uL (1.2-4.9); Mean Corpuscular HGB Conc 32.4 g/dl (31.0-35.0); Mean Corpuscular Hemoglobin 28.9 pg (27.0-33.0); Mean Corpuscular Volume 89.5 fL (80.0-98.0); Mean Platelet Volume 10.3 fL (9.4-12.3); Monocytes Absolute Auto 0.4 X10*3/uL (0.1-1.2); Monocytes Percent Auto 8.2 % (2-11); Neutrophils Absolute Auto 2.4 x10*3/uL (2.0-8.3); Neutrophils Percent Auto 54.2 % (45-73); Platelet Count 233 X10*3/uL (160-400); Red Blood Count 4.56 X10*6/uL (4.20-5.50); Red Cell Distribution Width 14.1 % (11.0-16.0); White Blood Count 4.4 X10*3/uL (4.8-10.8)
[2023-10-27 16:20] LABS: Estimated Average Glucose 163 mg/dL; Hemoglobin A1c % 7.3 % (<6.0)
[2023-10-27 16:28] LABS: Alanine Aminotransferase 28 U/L (0-31); Albumin Level 4.6 g/dL (3.5-5.0); Alkaline Phosphatase 64 U/L (39-117); Anion Gap 15 (12-20); Aspartate Amino Transferase 30 U/L (5-31); Bilirubin Total 0.4 mg/dL (0.0-1.0); Blood Urea Nitrogen 18 mg/dL (9-16); Calcium 10.1 mg/dL (8.4-10.2); Carbon Dioxide 25 mmol/L (22-29); Chloride 104 mmol/L (96-108); Estimated Glomerular Filt Rate > 60; Glucose Random 142 mg/dL (60-115); Potassium 5.1 mmol/L (3.3-5.1); Sodium 139 mmol/L (135-145); Total Protein 7.8 g/dL (6.5-8.0)
== END 2023-10-27 13:02 | disposition home or self-care (01) ==
LOC: HO.HMGCLDS 13:01
PROVIDERS: PCP Internal Medicine; Visit Provider Internal Medicine
DX: E11.9 Type 2 diabetes mellitus without complications (principal); I10 Essential (primary) hypertension; K21.9 Gastro-esophageal reflux disease without esophagitis
CPT/HCPCS: 36415; 80053; 83036; 85025

== ENCOUNTER 2024-04-04 11:55 | Outpatient (REF) | payer MEDICARE, SELFPAY ==
[2024-04-04 13:14] LABS: MANUAL DIFF FLAG NO
[2024-04-04 13:26] LABS: Basophils Percent Auto 0.8 % (0-2); Eosinophils Absolute Auto 0.1 X10*3/uL (0.0-0.4); Eosinophils Percent Auto 2.4 % (0-4); Hematocrit 39.3 % (37.0-47.0); Hemoglobin 12.7 g/dl (12.0-16.0); Lymphocytes Absolute Auto 1.3 X10*3/uL (1.2-4.9); Lymphocytes Percent Auto 25.3 % (20-40); Mean Corpuscular HGB Conc 32.3 g/dl (31.0-35.0); Mean Corpuscular Hemoglobin 28.5 pg (27.0-33.0); Mean Corpuscular Volume 88.3 fL (80.0-98.0); Mean Platelet Volume 10.2 fL (9.4-12.3); Monocytes Absolute Auto 0.4 X10*3/uL (0.1-1.2); Monocytes Percent Auto 7.5 % (2-11); Neutrophils Absolute Auto 3.2 x10*3/uL (2.0-8.3); Platelet Count 220 X10*3/uL (160-400); Red Blood Count 4.45 X10*6/uL (4.20-5.50); Red Cell Distribution Width 13.8 % (11.0-16.0); White Blood Count 5.1 X10*3/uL (4.8-10.8)
[2024-04-04 13:34] LABS: Estimated Average Glucose 148 mg/dL; Hemoglobin A1C 170.7999 umol/L; Hemoglobin A1c % 6.8 % (<6.0); Total Hemoglobin (HGBA1C) 3361.8305 umol/L
[2024-04-04 13:40] LABS: Alanine Aminotransferase 28 U/L (0-31); Albumin Level 4.4 g/dL (3.5-5.0); Alkaline Phosphatase 60 U/L (39-117); Anion Gap 13 (12-20); Aspartate Amino Transferase 32 U/L (5-31); Bilirubin Total 0.4 mg/dL (0.0-1.0); Blood Urea Nitrogen 19 mg/dL (9-16); Calcium 9.9 mg/dL (8.4-10.2); Carbon Dioxide 26 mmol/L (22-29); Chloride 104 mmol/L (96-108); Cholesterol 195 mg/dL (<200); Estimated Glomerular Filt Rate > 60; Glucose Fasting 161 mg/dL (60-99); HDL Cholesterol 70 mg/dL (>40); LDL Cholesterol Calculated 92 mg/dL (<100); Potassium 5.3 mmol/L (3.3-5.1); Sodium 138 mmol/L (135-145); Total Protein 7.4 g/dL (6.5-8.0); Triglycerides 169 mg/dL (<150)
[2024-04-04 13:56] LABS: Creatinine Urine 177.05 mg/dL; Microalbum/Creatinine Ratio Ur 23.1 ug/mg cr (<30)
== END 2024-04-04 11:56 | disposition home or self-care (01) ==
LOC: HO.HMGCLDS 11:55
PROVIDERS: PCP Internal Medicine; Visit Provider Internal Medicine
DX: E78.00 Pure hypercholesterolemia, unspecified (principal); I10 Essential (primary) hypertension; E11.9 Type 2 diabetes mellitus without complications
CPT/HCPCS: 36415; 80053; 80061; 82043; 82570; 83036; 85025

== ENCOUNTER 2024-04-18 14:42 | Outpatient (AMB) | payer MEDICARE, SELFPAY ==
--- NOTE | 2024-04-18 14:48 | MHC.OFFVIS ---
Vital Signs 04/18/24 14:49 Height 5 ft 7 in Weight 207 lb 3.752 oz BMI 32.5 BP 126/74 Blood Pressure Location Lt brachial Position Sitting Pulse 77 Intake Visit Reasons: 1 yr f/up Intake Note: 1 year follow-up with ekg feeling good Callisthenics Instructor Required: No Allergies No Known Allergies [No Known Allergies*] Allergy (Verified 07/10/23 15:21) Medication List - Last Reconciled 04/18/24 by Dain Siddiqui MD amlodipine 5 mg PO DAILY ascorbate calcium (vitamin C) 500 mg PO DAILY atorvastatin 20 mg PO DAILY calcium carbonate (Calcium 500) 500 mg PO DAILY cholecalciferol (vitamin D3) 25 mcg PO DAILY erythromycin 0.5 inches ophthalmic (eye) TID 5 days glipizide 5 mg PO DAILY insulin glargine (Basaglar KwikPen U-100 Insulin) 15 units subcut QAM magnesium 250 mg PO DAILY metformin ER 750 mg PO BID nwxuonvtfmez-gtij-uheoa acid 18-400 mg-mcg (Centrum Complete) 1 tab PO DAILY omega 2-lks-lax-fish oil 1,200 (144-216) mg (Fish Oil) 1,200 caps PO DAILY sertraline 150 mg PO DAILY venlafaxine ER 150 mg PO DAILY vitamin A99-gpvpo acid 500-400 mcg 1 tab PO DAILY vitamin E 200 units PO DAILY zinc 50 mg PO DAILY HPI Comments Details: Venessa comes for follow-up. No clear cardiac symptoms at current point time. Remains very functional. Denies any exertional chest pain or shortness of breath. Takes all her medications. No prolonged palpitation irregular heartbeat. No lightheadedness, syncope. No heart failure symptoms. Takes all her medications. Blood pressures been generally well controlled. Diabetes under your care with goal hemoglobin A1c less than 7%. LDL last measure at 93 PFSH Medical History Hyperlipidemia Diabetes SVT (supraventricular tachycardia) HTN (hypertension) Surgical History History of ankle surgery Family History Father CVD (cardiovascular disease) Mother No problems noted. Social History Alcohol intake: never Patient Tobacco Use Status: Never used Tobacco Review of Systems Const Denies chills, Denies fatigue, Denies fever(s), Denies frequent falls, Denies weakness, Denies weight gain and Denies weight loss ENT Denies dizziness Card Denies chest pain, Denies leg edema, Denies lightheadedness, Denies palpitations, Denies dyspnea, Denies dyspnea on exertion, Denies orthopnea and Denies other (loss of consciousness) Resp Denies cough, Denies dyspnea and Denies dyspnea on exertion GI Denies hematochezia and Denies change in stool character Musc Denies abnormal gait, Denies muscle weakness, Denies numbness, Denies radiating pain into limb and Denies tingling Neuro Denies abnormal gait, Denies dizziness, Denies frequent falls, Denies numbness, Denies tingling and Denies weakness Endo Denies fatigue and Denies palpitations Physical Exam Vital Signs: Last Vital Signs Pulse 77 04/18/24 14:49 BP 126/74 04/18/24 14:49 BMI result Body Mass Index 32.5 Const General: cooperative, healthy appearing, comfortable, no acute distress, alert and awake Nutritional Appearance: obese Orientation/consciousness: patient oriented x3 Limitations: no limitations Neck Neck: Yes normal visual inspection, Yes trachea midline, Yes supple and Yes no JVD Chest Chest palpation & inspection: normal inspection of the chest Resp Effort & Inspection: normal respiratory effort Auscultation: clear to auscultation bilaterally Cardio Jugular venous distension: no JVD Palpation: normal PMI Rate: regular rate Rhythm: regular rhythm Heart sounds: S1 normal heart sound present, S2 normal heart sound present and Other heart sounds present Peripheral pulses: Peripheral pulses 2+ throughout GI Inspection: Yes obesity Auscultation: normal bowel sounds Skin General skin exam: no rashes or lesions noted Neuro General: patient oriented x3 and no focal motor deficits Extrem General: Yes no clubbing, cyanosis or edema Psych Appearance: grossly normal Office Procedures EKG Details: EKG shows normal sinus rhythm with normal EKG [id number], Complete Assessment & Plan Assessment & Plan (1) SVT (supraventricular tachycardia): Code(s): I47.1 - Supraventricular tachycardia Category: Medical Plan: Supraventricular tachycardia which has remained suppressed without any obvious clinical symptoms at this point in time. Currently not on any rate lowering medications. Advised to call me with any new symptoms. She performed smart phone based EKG on almost daily basis. Avoidance of stimulants was discussed. No specific pharmacotherapy or interventions recommended at this point time. (2) HTN (hypertension): Code(s): I10 - Essential (primary) hypertension Category: Medical Plan: Hypertension which seems to be adequately controlled on current therapy. Importance of good blood pressure control was discussed. Continue current therapy. Target goal blood pressure less than 130/84. Diabetes under good control but consider newer agents such as SGLT2 inhibitor or GLP 1 antagonist. Also LDL not well optimized. Target goal LDL less than 70 mg/dL given underlying diabetes. Consider increasing atorvastatin to 40 mg daily. Advised to call me with any new symptoms. Follow up in the clinic in 1 year's time, sooner p.r.n.. Thank me to partake in her care Coding Level of Care Code Est Pt Level 4 (11686) Complex EM visit Add On G2211 Diagnoses SVT (supraventricular tachycardia) I47.1 HTN (hypertension) I10 CPT Codes EKG - CPT: [id number]-[id number], Complete ([id number])
[2024-04-18 14:49] VITALS: BP 126/74; PULSE 77; BMI 32.5
== END 2024-04-18 15:10 | disposition home or self-care (01) ==
PROVIDERS: PCP Internal Medicine; Visit Provider Internal Medicine Cardiovascular Disease
DX: I47.10 Supraventricular tachycardia, unspecified (principal); I10 Essential (primary) hypertension
CPT/HCPCS: 93010; 99214; G2211

== ENCOUNTER → 2024-04-18 14:42 | Outpatient (BNVA) | payer MEDICARE, SELFPAY | PROVIDERS: PCP Internal Medicine; Visit Provider Internal Medicine Cardiovascular Disease | DX: I47.10 Supraventricular tachycardia, unspecified (principal); I10 Essential (primary) hypertension | CPT/HCPCS: 93005; 99212 ==

== ENCOUNTER 2024-09-01 13:18 | Outpatient (REF) | payer MEDICARE, SELFPAY ==
[2024-09-01 16:17] LABS: Estimated Average Glucose 143 mg/dL; Hemoglobin A1C 159.5159 umol/L; Hemoglobin A1c % 6.6 % (<6.0); Total Hemoglobin (HGBA1C) 3269.4166 umol/L
[2024-09-01 16:42] LABS: Alanine Aminotransferase 16 U/L (0-31); Albumin Level 4.2 g/dL (3.5-5.0); Alkaline Phosphatase 59 U/L (39-117); Anion Gap 14 (12-20); Aspartate Amino Transferase 24 U/L (5-31); Bilirubin Total 0.4 mg/dL (0.0-1.0); Blood Urea Nitrogen 16 mg/dL (9-16); Calcium 9.2 mg/dL (8.4-10.2); Carbon Dioxide 27 mmol/L (22-29); Chloride 104 mmol/L (96-108); Estimated Glomerular Filt Rate > 60; Glucose Random 170 mg/dL (60-115); Potassium 4.9 mmol/L (3.3-5.1); Sodium 140 mmol/L (135-145)
== END 2024-09-01 13:19 | disposition home or self-care (01) ==
LOC: HO.HMGCLDS 13:18
PROVIDERS: PCP Internal Medicine; Visit Provider Internal Medicine
DX: E11.9 Type 2 diabetes mellitus without complications (principal); K21.9 Gastro-esophageal reflux disease without esophagitis; I10 Essential (primary) hypertension
CPT/HCPCS: 36415; 80053; 83036

== ENCOUNTER 2024-09-05 13:43 | Outpatient (AMB) | payer MEDICARE, SELFPAY ==
[2024-09-05 13:56] VITALS: BP 130/70; PULSE 81; TEMP 36.4; O2SAT 97; BMI 31.9
--- NOTE | 2024-09-05 13:56 | MHC.PC.OV ---
Vital Signs 09/05/24 13:56 Height 5 ft 7 in Weight 204 lb BMI 31.9 BP 130/70 Blood Pressure Location Lt brachial Position Sitting Pulse 81 Temp 97.5 F Temp Source Axillary Pulse Oximetry (%) 97 Oxygen Delivery Method Room Air Intake Visit Reasons: Routine Mason Tender Required: No Accompanied by: Self / Same As Patient Allergies No Known Allergies [No Known Allergies*] Allergy (Verified 09/05/24 13:57) Tobacco use date assessed: 09/05/24 Fall risk assessment: No Falls in past year Last assessed Fall Risk: 09/05/24 Dental Screening Dental Screen Date: 09/05/24 Did you have a dental visit in the last 12 months?: Yes Did you have a dental problem in the last 6 months where you did not have access to dental care?: No [facility] Medical History (Updated 09/05/24 @ 14:44 by Mason Myers MD) Major depression in complete remission Hyperlipidemia Diabetes SVT (supraventricular tachycardia) HTN (hypertension) Surgical History History of ankle surgery Family History Father CVD (cardiovascular disease) Mother No problems noted. Social History Housing: House Alcohol intake: never Patient Tobacco Use Status: Former Tobacco user e-Cigarette/Vaping Use: Former Use service: No Current occupational status: retired Cognitive needs: No Hearing needs: No Vision needs: Yes (reading glasses) Questionnaire PHQ-9 Over the last 2 weeks, how often have you been bothered by any of the following problems? 1. Little interest or pleasure in doing things: not at all 2. Feeling down, depressed, or hopeless: not at all 3. Trouble falling or staying asleep, or sleeping too much: not at all 4. Feeling tired or having little energy: not at all 5. Poor appetite or overeating: not at all 6. Feeling bad about yourself - or that you are a failure or have let yourself or your family down: not at all 7. Trouble concentrating on things, such as reading the newspaper or watching television: not at all 8. Moving or speaking so slowly that other people could have noticed. Or the opposite - being so fidgety or restless that you have been moving around a lot more than usual: not at all 9. Thoughts that you would be better off or of hurting yourself in some way: not at all Total score: 0 Source: Developed by Drs. Cedrick Morley, Jina Madera, Eriberto Melendez and colleagues, with an educational josé from [employer]. Thrive Questionnaire Date Thrive assessed: 09/05/24 I am a: Patient Within the past 12 months, did the food you bought not last and you didn't have the money to get more?: Never true Within the past 12 months, did you worry whether your food would run out before you got money to buy more?: Never true Do you have trouble paying for medicines?: No Do you have trouble getting transportation to medical appointments?: No Do you have trouble paying your heating and electricity bill?: No Do you have trouble taking care of your child, family member or friend?: No Do you have trouble with day-to-day activities such as bathing, preparing meals, shopping, managing finances, etc.?: No Are you currently unemployed and looking for a job?: No Are you interested in more education?: No THRIVE Score: 0 AUDIT C Alcohol Use Questionnaire (AUDIT-C) 1. How often do you have a drink containing alcohol?: Monthly or less 2. How many drinks containing alcohol do you have on a typical day when you are drinking?: 1 or 2 3. How often do you have six or more drinks on one occasion?: Less than monthly Total Score: 2 TRAVIS-7 AMB Questionnaire TRAVIS-7 Date TRAVIS - 7 assessed: 09/05/24 Feeling nervous, anxious, or on edge: 0 = Not at all Not being able to stop or control worryin = Not at all Worrying too much about different things: 0 = Not at all Trouble relaxin = Not at all Being so restless that it is hard to sit still: 0 = Not at all Becoming easily annoyed or irritable: 0 = Not at all Feeling afraid as if something awful might happen: 0 = Not at all Total TRAVIS-7 score (0-4 normal; 5-9 mild; 10-14 moderate; 15-21 severe): 0 Source: Developed by Drs. Cedrick Morley, Jina Madera, Eriberto Melendez and colleagues, with an educational josé from [employer]. Physical exam (Primary Care) Vital Signs: Last Vital Signs Temp 97.5 F 09/05/24 13:56 Pulse 81 09/05/24 13:56 BP 130/70 09/05/24 13:56 Pulse Ox 97 09/05/24 13:56 Oxygen Delivery Method Room Air 09/05/24 13:56 BMI result Body Mass Index 31.9 Tobacco/Smoking Status: Tobacco use Status Tobacco use date assessed 09/05/24 09/05/24 13:59 Patient Tobacco Use Status Former Tobacco user 09/05/24 14:14 e-Cigarette/Vaping Use Former Use 09/05/24 14:14 PHQ-9: PHQ-9 Score PHQ-9: Total score 0 09/05/24 14:06 Thrive Assessment: Date of Thrive Assessment Date Thrive assessed 09/05/24 09/05/24 14:06 Coding Level of Care Code New Pt Level 4 (82997) Complex EM visit Add On G2211 Diagnoses Major depression in complete remission F32.5 HTN (hypertension) I10 SVT (supraventricular tachycardia) I47.1 Diabetes E11.9 Assessment & Plan Assessment & Plan (1) Major depression in complete remission: Code(s): F32.5 - Major depressive disorder, single episode, in full remission Category: Medical Plan: On two antidepressants. Tolerating the medications well. Curently sx are stable. Continue the current regimen (2) HTN (hypertension): Code(s): I10 - Essential (primary) hypertension Category: Medical Plan: BP is stable. Continue medications (3) SVT (supraventricular tachycardia): Code(s): I47.1 - Supraventricular tachycardia Category: Medical Plan: Stable (4) Diabetes: Code(s): E11.9 - Type 2 diabetes mellitus without complications Category: Medical Plan: A1c is in range. Continue medications at same dosage Plan History of Present Illness The patient is a 73-year-old female presenting for an annual wellness visit and review of her chronic medical conditions: sciatica, diabetes, and mood disorder. She reports managing her sciatica through regular exercise and does not require physical therapy at this stage, as the symptoms are intermittent. Her diabetes management includes a regimen of metformin, glipizide, and daily insulin, with an A1C maintained at 6.6%. The patient states that her previous tests were done last in [place], with satisfactory results indicating her condition is stable. Mood management is maintained with sertraline and venlafaxine, noting occasional mood swings that have not necessitated psychiatric intervention. Her preventive care includes up-to-date mammograms done at [facility]. She was informed that further colonoscopy screening is not needed following her last test at [facility] in 2015. 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 - Lives with her sister, sharing responsibilities, including health proxies for each other. - Regular exercise and participation in programs at a [facility]. - Continues to engage with [place] language through news consumption. - Former sabbatical in 2020 due to COVID-19. - Manages her finances independently. Review of Systems - Musculoskeletal: Reports intermittent sciatica pain managed by exercise. - Endocrine: Diabetes, reports control with medications. - Psychiatric: Reports mood swings, managed with antidepressants. - Ophthalmologic: Denies significant night vision halos; no current need for cataract surgery. Physical Exam General: Cooperative and healthy appearing Nutritional Appearance: Well nourished Orientation/consciousness: Patient oriented x3 Limitations: No limitations Head: Normal to inspection General: Appearance normal, both eyes and all related structures Neck: Normal visual inspection Chest: Normal palpation of entire chest wall Respiratory: N ormal respiratory effort Neurology: Patient oriented x3, able to function despite mood swings, manages own finances, drives at night with slight halos but manageable. Results - Labs: Report from recent blood work indicating A1C at 6.6%. - Tests: Annual mammogram up-to-date at [facility] (no abnormal findings noted in the conversation). - Procedures: Colonoscopy completed in 2016 at [facility], no further procedures required as per current guidelines. Plan Management of sciatica will continue with patient-driven exercise routines as symptoms are manageable. For diabetes management, adherence to the current medication regimen including metformin, glipizide, and insulin is reinforced as her A1C is well controlled. Follow-up for any changes in medication needs is advised as necessary. Mood disorder management will continue with current prescriptions of sertraline and venlafaxine. Further psychiatric evaluation will be considered if mood swings become unmanageable. Regular preventive screenings such as mammograms remain current, and ongoing assessments will ensure health maintenance. Patient was informed and verbally consented to the use of an ambient scribe for clinic note documentation during this visit. Discussion Notes During the visit, we reviewed management strategies for her conditions. I emphasized the importance of maintaining her regimen for diabetes, noting the excellent control indicated by a recent A1C of 6.6%. We discussed her current approach to managing sciatica with exercise and agreed to avoid physical therapy unless symptoms worsen. For her mood disorder, I highlighted the necessity of continuing current medications and agreed that no new psychiatric consultation was necessary unless conditions change. We reviewed her preventive care status, confirming regular mammograms at [facility] and addressed possible future changes based on health updates. We agreed to stay in regular communication and to consider psychiatric referrals if mood symptoms escalate. Patient Instructions - Continue current exercise routine to manage sciatica. - Maintain diabetes medications as prescribed (metformin, glipizide, and insulin) and monitor blood sugar levels regularly. - Continue sertraline and venlafaxine for managing mood disorder and note any changes in symptoms. - Ensure up-to-date mammograms and other preventive screenings as advised. - Keep a record of any changes in symptoms or concerns, and discuss them during follow-up visits. - Seek evaluation if mood symptoms or sciatica worsen significantly before the next scheduled visit. Orders: Orders Lipid Panel 02/22/25. - Major depressive disorder, single episode, in full remission, I10 - Essential (primary) hypertension Liver Panel 02/22/25.5 - Major depressive disorder, single episode, in full remission, I10 - Essential (primary) hypertension Microalbumin, Random (w Creat) 02/22/25.5 - Major depressive disorder, single episode, in full remission, I10 - Essential (primary) hypertension UA and rflx microscopic 02/22/25.5 - Major depressive disorder, single episode, in full remission, I10 - Essential (primary) hypertension Hemoglobin A1c 02/22/25.5 - Major depressive disorder, single episode, in full remission, I10 - Essential (primary) hypertension Complete Blood Count no Diff 02/22/25.5 - Major depressive disorder, single episode, in full remission, I10 - Essential (primary) hypertension Thyroid Stimulating Hormone 02/22/25 F32.5 - Major depressive disorder, single episode, in full remission, I10 - Essential (primary) hypertension Basic Metabolic Panel 02/22/25 F32.5 - Major depressive disorder, single episode, in full remission, I10 - Essential (primary) hypertension
== END 2024-09-05 14:38 | disposition home or self-care (01) ==
PROVIDERS: PCP Internal Medicine; Visit Provider Internal Medicine
DX: F32.5 Major depressive disorder, single episode, in full remission (principal); I10 Essential (primary) hypertension; I47.10 Supraventricular tachycardia, unspecified; E11.9 Type 2 diabetes mellitus without complications

== ENCOUNTER → 2024-09-05 13:43 | Outpatient (BNVA) | payer MEDICARE, SELFPAY | PROVIDERS: PCP Internal Medicine; Visit Provider Internal Medicine | DX: F32.5 Major depressive disorder, single episode, in full remission (principal); I10 Essential (primary) hypertension; I47.10 Supraventricular tachycardia, unspecified | CPT/HCPCS: 99202 ==

== ENCOUNTER 2025-03-20 14:40 | Outpatient (AMB) | payer MEDICARE, SELFPAY ==
[2025-03-20 14:44] VITALS: BP 128/80; PULSE 75; TEMP 36.1; O2SAT 98; BMI 32.6
--- NOTE | 2025-03-20 14:44 | A.OFFPC_ITS ---
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: No Accompanied by: Self / Same As Patient Allergies No Known Allergies (No Known Allergies*) Allergy (Verified 03/20/25 14:45) Medication List - Last Reconciled 03/20/25 by Stpehan Cosme MD amlodipine 5 mg PO DAILY ascorbate calcium (vitamin C) 500 mg PO DAILY atorvastatin 20 mg PO DAILY calcium carbonate (Calcium 500) 500 mg PO DAILY cholecalciferol (vitamin D3) 25 mcg PO DAILY glipizide ER 10 mg (2 x 5 mg) PO DAILY insulin glargine (Basaglar KwikPen U-100 Insulin) 40 units (0.4 mL) subcut DAILY latanoprost 0.005% chip ophthalmic (eye) magnesium 250 mg PO DAILY metformin ER 750 mg PO BID upjuuxdwpqmk-xnab-imvqo acid 18-400 mg-mcg (Centrum Complete) 1 tab PO DAILY omega 7-wrf-gbk-fish oil 1,200 (144-216) mg (Fish Oil) 1,200 caps PO DAILY omeprazole 20 mg PO DAILY pen needle, diabetic (Ultra-Fine Pen Needle) USE ONCE DAILY DIRECTED sertraline 150 mg (1.5 x 100 mg) PO DAILY venlafaxine ER 150 mg PO DAILY vitamin Q37-lgsem acid 500-400 mcg 1 tab PO DAILY vitamin E 200 units PO DAILY zinc 50 mg PO DAILY Tobacco use date assessed: 03/20/25 Fall risk assessment: No Falls in past year Last assessed Fall Risk: 03/20/25 Dental Screening Dental Screen Date: 03/20/25 Did you have a dental visit in the last 12 months?: Yes Did you have a dental problem in the last 6 months where you did not have access to dental care?: No HPI HPI Comments History of Present Illness Details The patient is a 74-year-old female presenting for follow-up of chronic conditions and an annual physical examination. She reports occasional episodes of depression. Regarding her diabetes, her last A1c in August was 6.6%. Her current regimen includes glipizide 10 mg once daily, Basaglar 40 units every morning, and metformin 750 mg twice daily. She checks her blood glucose levels occasionally at home, with values around 140 mg/dL. For hypertension, she takes amlodipine 5 mg. Her last cholesterol panel in March of the previous year showed an LDL of 92 mg/dL and a total cholesterol of 195 mg/dL. Her past medical history is also significant for glaucoma, for which she uses latanoprost eye drops, and acid reflux, managed with omeprazole. She has a history of smoking for over 40 years and quit in 2018. She stays physically active with daily exercise. In terms of health screenings, her mammogram this year was normal, and the next is due in October of next year. Her last bone scan was a couple of years ago, and she does not recall the date of her last lung cancer screening. Medical History: - Type 2 Diabetes Mellitus - Essential Hypertension - Hyperlipidemia - Glaucoma - Gastroesophageal reflux disease - Depressive disorder - Tobacco use disorder, in remission (Qu it in 2018 after smoking >40 years) Medications: - Amlodipine 5 mg for hypertension - Glipizide 10 mg once daily for diabete s - Basaglar 40 units every morning for di abetes - Metformin 750 mg twice a day for diabe bridget - Latanoprost eye drops for glaucoma - Omeprazole for acid reflux - Sertraline for mood - Levofloxacin for mood - Prevagen (OTC) - Vitamin D (supplement) - Unspecified supplements (OTC) Diagnostic Results: - Labs: HgbA1c was 6.6% in August. - Labs: Lipid panel from March last y ear showed LDL 92 mg/dL and total cholesterol 195 mg/dL. - Imaging: Mammogram performed this year was normal. Social History: - Tobacco Use: The patient is a former s moker, having quit in 2018 after smoking approximately 1 pack per day for over 40 years since 1974 or 1975. - Diet: Reports being always on a diet . - Exercise: Reports exercising every day . 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 - Social Activity: Stays busy and active at the local [employer] center and with her denominational. [facility] Medical History (Updated 03/20/25 @ 15:11 by Stephan Cosme MD) Screening for osteoporosis Tobacco use disorder Major depression in complete remission Hyperlipidemia Diabetes SVT (supraventricular tachycardia) HTN (hypertension) Surgical History History of colonoscopy (~05/13/17) History of ankle surgery Family History (Updated 03/20/25 @ 14:53 by Pamela Mo MA) Father CVD (cardiovascular disease) Mother No problems noted. Social History Housing: House Alcohol intake: never Patient Tobacco Use Status: Former Tobacco user e-Cigarette/Vaping Use: Former Use service: No Current occupational status: retired Cognitive needs: No Hearing needs: No Vision needs: Yes (reading glasses) Questionnaire PHQ-9 Over the last 2 weeks, how often have you been bothered by any of the following problems? 1. Little interest or pleasure in doing things: not at all 2. Feeling down, depressed, or hopeless: several days (anxiety sometimes) 3. Trouble falling or staying asleep, or sleeping too much: several days (trouble falling asleep sometimes) 4. Feeling tired or having little energy: not at all 5. Poor appetite or overeating: not at all 6. Feeling bad about yourself - or that you are a failure or have let yourself or your family down: not at all 7. Trouble concentrating on things, such as reading the newspaper or watching television: not at all 8. Moving or speaking so slowly that other people could have noticed. Or the opposite - being so fidgety or restless that you have been moving around a lot more than usual: not at all 9. Thoughts that you would be better off or of hurting yourself in some way: not at all Total score: 2 Depression Screening Interpretation: Negative Depression Screening Done: Yes 87615 - PHQ-9 Billing: Yes Source: Developed by Drs. Cedrick Morley, Jina Madera, Eriberto Melendez and colleagues, with an educational josé from [employer]. Thrive Questionnaire Date Thrive assessed: 03/20/25 I am a: Patient What is your living situation today?: I have a steady place to live Within the past 12 months, did the food you bought not last and you didn't have the money to get more?: Never true Within the past 12 months, did you worry whether your food would run out before you got money to buy more?: Never true Do you have trouble paying for medicines?: No Do you have trouble getting transportation to medical appointments?: No Do you have trouble paying your heating and electricity bill?: No Do you have trouble taking care of your child, family member or friend?: No Do you have trouble with day-to-day activities such as bathing, preparing meals, shopping, managing finances, etc.?: No Are you currently unemployed and looking for a job?: No Are you interested in more education?: No THRIVE Score: 0 AUDIT C Alcohol Use Questionnaire (AUDIT-C) 1. How often do you have a drink containing alcohol?: Monthly or less 2. How many drinks containing alcohol do you have on a typical day when you are drinking?: 1 or 2 3. How often do you have six or more drinks on one occasion?: Less than monthly Total Score: 2 Score Reviewed/Action Taken: Yes TRAVIS-7 AMB Questionnaire TRAVIS-7 Date TRAVIS - 7 assessed: 03/20/25 Feeling nervous, anxious, or on edge: 0 = Not at all Not being able to stop or control worryin = Not at all Worrying too much about different things: 0 = Not at all Trouble relaxin = Not at all Being so restless that it is hard to sit still: 0 = Not at all Becoming easily annoyed or irritable: 0 = Not at all Feeling afraid as if something awful might happen: 0 = Not at all Total TRAVIS-7 score (0-4 normal; 5-9 mild; 10-14 moderate; 15-21 severe): 0 Source: Developed by Drs. Cedrick Morley, Jina Madera, Eriberto Melendez and colleagues, with an educational josé from [employer]. TRAVIS-7 Assessment Billing TRAVIS-7 Assessment Tool: TRAVIS-7 Assessment 36718 Review of Systems Narrative - Constitutional: Denies unintentional weight loss. - Psychiatric: Reports occasional episodes of depression. - Neurological: Denies headaches. - Cardiovascular: Denies chest pain. - Respiratory: Denies shortness of breath. - Gastrointestinal: Denies nausea or vomiting. - Genitourinary: Denies dysuria. - Musculoskeletal: Denies joint pain. All systems reviewed & are unremarkable except as reviewed in HPI and above Physical exam (Primary Care) Vital Signs: Last Vital Signs Temp 97 F 03/20/25 14:44 Pulse 75 03/20/25 14:44 BP 128/80 03/20/25 14:44 Pulse Ox 98 03/20/25 14:44 Oxygen Delivery Method Room Air 03/20/25 14:44 BMI result Body Mass Index 32.6 Tobacco/Smoking Status: Tobacco use Status Tobacco use date assessed 03/20/25 03/20/25 14:46 Patient Tobacco Use Status Former Tobacco user 03/20/25 14:46 e-Cigarette/Vaping Use Former Use 03/20/25 14:46 PHQ-9: PHQ-9 Score PHQ-9: Total score 2 03/20/25 14:54 Depression Screening Interpretation: Negative Thrive Assessment: Date of Thrive Assessment Date Thrive assessed 03/20/25 03/20/25 14:46 Narrative General: Alert and oriented, Well nourished, No acute distress. Eye: Pupils are equal, round and reactive to light, Intact accommodation, Extraocular movements are intact, Normal conjunctiva, Vision unchanged. HENT: Normocephalic, Atraumatic, Tympanic membranes are clear, Normal hearing, Oral mucosa is moist, No pharyngeal erythema, Ear canals patent. Respiratory: Lungs CTA bilaterally, No wheeze, Respirations are non-labored. Cardiovascular: Regular rate, Regular rhythm, S1 auscultated, S2 auscultated, No murmur, Good pulses equal in all extremities, Normal peripheral perfusion, No edema. Gastrointestinal: Soft, Non-tender, Non-distended, Normal bowel sounds, No organomegaly. Musculoskeletal: Normal range of motion, Normal strength, No tenderness, No swelling, No deformity, Normal gait. Integumentary: Warm, Dry, [place], Intact. Neurologic: Alert, Oriented, Normal sensory, Normal motor function, No focal defects, Cranial Nerves II-XII are grossly intact, Normal deep tendon reflexes. Psychiatric: Cooperative, Appropriate mood & affect, Normal judgment, occasional depression noted. 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 - To continue on same regiment and monitor pressures at home Code(s): I10 - Essential (primary) hypertension Category: Medical Qualifiers: Hypertension type: primary hypertension Qualified Code(s): I10 - Essential (primary) hypertension (2) Diabetes: Comment: - The patient's A1c of 6.6% in August indicates good control. - She will continue her current regimen of glipizide, Basaglar, and metformin. - A standing order for an A1c every 3 months will be placed, to be performed the day before her scheduled follow-up appointments to guide future management. Code(s): E11.9 - Type 2 diabetes mellitus without complications Category: Medical Qualifiers: Diabetes mellitus type: type 2 Diabetes mellitus long-term insulin use: with long-term use Diabetes mellitus complication status: without complication Qualified Code(s): E11.9 - Type 2 diabetes mellitus without complications; Z79.4 - long-term (current) use of insulin (3) Hyperlipidemia: Comment: - Last year's cholesterol was borderline. - A lipid panel will be ordered today to reassess. - To continue on atorvastatin 20 at this time Code(s): E78.5 - Hyperlipidemia, unspecified Category: Medical Qualifiers: Hyperlipidemia type: other hyperlipidemia Qualified Code(s): E78.49 - Other hyperlipidemia (4) Major depression in complete remission: Comment: - The patient reports occasional depression. - To evaluate for contributing factors, a TSH and vitamin D level will be checked today. - She will continue her current medications of venlafaxine and sertraline Code(s): F32.5 - Major depressive disorder, single episode, in full remission Category: Medical Qualifiers: Major depression recurrence: unspecified whether recurrent Qualified Code(s): F32.5 - Major depressive disorder, single episode, in full remission Plan: Health Maintenance: - Mammogram: Performed this year with normal results; next screening due in October next year. - Bone Density Screening: An order will be placed for a bone scan to establish a new baseline. - Lung Cancer Screening: The patient has a greater than 68-vrsg-urle smoking history and quit in 2018. An order will be placed for annual low-dose CT screening. - Laboratory Monitoring: Orders placed today for a lipid panel, TSH, vitamin D level, and blood counts. A standing order will be placed for an A1c every 3 months. - Follow-up: Patient will be seen every three months for closer monitoring of chronic conditions. Patient was informed and verbally consented to the use of an ambient scribe for clinic note documentation during this visit. Plan I discussed with the patient that this visit would be considered her annual physical. We reviewed the status of her chronic conditions, including diabetes, hypertension, and cholesterol, noting that her A1c and blood pressure are well- controlled. I explained the plan to order labs today, including thyroid and vitamin D levels, as abnormalities in these can sometimes contribute to feelings of depression. I recommended a baseline bone density scan as a preventative screening measure, which the patient agreed to. We extensively discussed her significant smoking history and the importance of annual lung cancer screening with a low-dose CT scan. I explained the benefit of this screening is to detect any potential nodules when they are small and can be removed, preventing them from developing into a larger problem, and she was agreeable to proceeding. I advised the patient on the plan for follow-up every three months to more closely monitor her conditions. I informed her that she should get her bloodwork done today, and that for future visits, a requisition for her A1c will be in the system for her to complete the day before her appointment. I will communicate any abnormal results and subsequent plan changes through the patient portal. Orders: Orders Complete Blood Count Auto Diff Today Z00.00 - Encounter for general adult medical examination without abnormal findings Lipid Panel Today Z00.00 - Encounter for general adult medical examination without abnormal findings Hepatitis A,B,C Profile Today Z00.00 - Encounter for general adult medical examination without abnormal findings Hemoglobin A1c 3 Months E11.9 - Type 2 diabetes mellitus without complications Microalbumin, Random (w Creat) Today E11.9 - Type 2 diabetes mellitus without complications XR DEXA axial skeleton Today Z13.820 - Encounter for screening for osteoporosis Comprehensive Met. Panel Today Z00.00 - Encounter for general adult medical examination without abnormal findings Hemoglobin A1c Today Z00.00 - Encounter for general adult medical examination without abnormal findings Syphilis Screen Today Z00.00 - Encounter for general adult medical examination without abnormal findings TSH reflex Free T4 Today Z00.00 - Encounter for general adult medical examination without abnormal findings Vitamin D 25-OH Total Today Z00.00 - Encounter for general adult medical examination without abnormal findings HIV Ab/Ag Today Z00.00 - Encounter for general adult medical examination without abnormal findings Referrals Lung Cancer Screening Referral F17.200 - Nicotine dependence, unspecified, uncomplicated Patient Instructions: - Please go to the hospital lab today to have your blood drawn for several tests. You do not need to fast for this. - We have placed orders for a bone density scan and a lung cancer screening CT scan. The hospital will contact you to schedule these appointments. - Please continue to take all your current medications as prescribed. - Continue your daily exercise and stay active. - Please schedule a follow-up appointment to see me in three months. - The day before your next appointment, please go to the lab to have your A1c (a blood sugar test) done. The order will already be in the system. - I will contact you via the patient portal to share your test results and let you know if any changes to your treatment are needed.
--- OUTSIDE RECORDS SUMMARY | 2025-03-20 18:09 | XMS_ITS | Patient Health Record ---
Author Organization [facility] Address [address] [place] [address] Care Team Providers Care Hardwood Faller Name Role Phone Marina (RETIRED) Faraz SCHWARTZ Primary Care Provide r Unavailable Jose Goldberg Jr Unavailable [phone] Reason For Referral No Information Medications Medication SIG (Take, Route, Fr equency, Duration) Notes Start Date End Date Status Fish Oil Active Lisinopril Active metFORMIN HCl Active Vitamin B Complex Ac tive Aspirin Active Zoloft Active Simvastatin Active Vitamin C Active Calcium Active Centrum Active Vitamin E Active Vitamin D Active Social History Tobacco Use: Social History Observation Description Date Details (start date - stop date) Current Smoker NA - NA Tobacco Use/Smoking Question Answer Notes Patient is a current smoker When did you start smoking? age 26 How often do you smoke cigarettes? every day How many cigarettes a day do you smoke? 6-10 Alcohol Screen Question Answer Notes Did you have a drink contain ing alcohol in the past year? Yes How often did you have a dri nk containing alcohol in the past year? 2 to 4 times a month (2 points) How many drinks did you have on a typical day when you were drinking in the past year? 1 or 2 drinks (0 point) How often did you have 6 or more drinks on one occasion in the past year? Never (0 point) Points 2 Interpretation Negative Problems Problem Type SNOMED Code ICD Code Onset Dates Problem Status W/U Status Risk Notes Problem Colon cancer screening ([id number]) Colon cancer screening (Z12.11) Active confirmed Problem Long-term current use of antiplatelet drug ([id number] ) skilled nursing (current) use of aspirin (Z79.82) Active confirmed Problem Long-term current use of drug therapy ([id number]) Long-term current use of high risk medication other than anticoagulant (Z79.899) Active confirmed Plan Of Treatment Future Test Test Name Order Date COLONOSCOPY 11/26/2016 Insurance Providers Payer Name Payer Address Payer Phone Subscriber Number Group Number Insured Name Patient Relationship to Insured Coverage Start Date Coverage End Date [facility] [employer] [address] [place] [address] [id number] PAUL REYNA Self - patient is the insured Medical (General) History Medical History History ICD Code type II diabetes hypercholesterolemia
== END 2025-03-20 15:12 | disposition home or self-care (01) ==
LOC: HO.HMCHD 14:41
PROVIDERS: PCP Internal Medicine; Visit Provider Student in an Organized Health Care Education/Training Program
DX: I10 Essential (primary) hypertension (principal); E11.9 Type 2 diabetes mellitus without complications; Z79.4 Long term (current) use of insulin; E78.49 Other hyperlipidemia; F32.5 Major depressive disorder, single episode, in full remission

== ENCOUNTER 2025-03-20 14:40 | Outpatient (REF) | payer MEDICARE, SELFPAY ==
[2025-03-20 15:26] LABS: MANUAL DIFF FLAG NO
[2025-03-20 15:56] LABS: Hematocrit 37.3 % (37.0-47.0); Hemoglobin 11.5 g/dl (12.0-16.0); Imm Gran Abs Auto 0.01 X10*3/uL (0.00-0.03); Imm Gran Pct Auto 0.1 % (0.0-0.4); Lymphocytes Absolute Auto 1.7 X10*3/uL (1.2-4.9); Mean Corpuscular HGB Conc 30.8 g/dl (31.0-35.0); Mean Corpuscular Hemoglobin 26.6 pg (27.0-33.0); Mean Corpuscular Volume 86.1 fL (80.0-98.0); NRBC Abs Auto 0.000 X10*3/uL (0.0-0.012); NRBC Pct Auto 0.0 /100WBC (0.0-0.2); Platelet Count 240 X10*3/uL (160-400); Red Blood Count 4.33 X10*6/uL (4.20-5.50); White Blood Count 6.9 X10*3/uL (4.8-10.8)
[2025-03-20 16:28] LABS: Alanine Aminotransferase 23 U/L (0-31); Albumin Level 4.8 g/dL (3.5-5.0); Alkaline Phosphatase 59 U/L (39-117); Anion Gap 13 (12-20); Aspartate Amino Transferase 32 U/L (5-31); Blood Urea Nitrogen 15 mg/dL (9-16); Calcium 9.3 mg/dL (8.4-10.2); Carbon Dioxide 29 mmol/L (22-29); Chloride 103 mmol/L (96-108); Cholesterol 197 mg/dL (<200); Estimated Glomerular Filt Rate > 60; HDL Cholesterol 74 mg/dL (>40); Potassium 4.6 mmol/L (3.3-5.1); Sodium 140 mmol/L (135-145); Total Protein 7.4 g/dL (6.5-8.0); Triglycerides 149 mg/dL (<150)
[2025-03-20 16:47] LABS: Microalbum/Creatinine Ratio Ur 21.8 ug/mg cr (<30)
[2025-03-21 03:31] LABS: Syphilis Screen Nonreactive (Nonreactive)
[2025-03-21 03:35] LABS: Hepatitis A Antibody IgM 0.16 Index (0-0.79); ~Hepatitis A Antibody IgM Nonreactive (Nonreactive)
[2025-03-21 04:04] LABS: HBS Num1 0.77 mIU/mL (0-7.99); HBc Num1 0.05 S/CO (0.00-0.79); HBsAGNum1 0.38 S/CO (0.00-0.99); HIV Num 1 0.06 S/CO (0.00-0.99); Hepatitis B Surface Antigen Negative (Negative); ~HepC Num1 0.05 S/CO (0.00-0.79); ~Hepatitis B Surface Antibody NONREACTIVE (Nonreactive); ~Hepatitis C Antibody Nonreactive (Nonreactive)
== END 2025-03-20 14:41 | disposition home or self-care (01) ==
LOC: HO.LAB 14:40
PROVIDERS: PCP Internal Medicine; Visit Provider Student in an Organized Health Care Education/Training Program
DX: Z00.00 Encounter for general adult medical examination without abnormal findings (principal); E11.9 Type 2 diabetes mellitus without complications; I10 Essential (primary) hypertension; E78.49 Other hyperlipidemia; F32.5 Major depressive disorder, single episode, in full remission; Z79.4 Long term (current) use of insulin; Z79.84 Long term (current) use of oral hypoglycemic drugs; Z79.899 Other long term (current) drug therapy
CPT/HCPCS: 36415; 80053; 80061; 82043; 82306; 82570; 83036; 84443; 85025; 86704; 86706; 86709; 86780; 86803; 87340; 87389; 96127; 99212

== ENCOUNTER 2025-04-11 14:27 | Outpatient (AMB) | payer MEDICARE, SELFPAY ==
[2025-04-11 14:28] VITALS: BP 120/72; PULSE 74; BMI 32.1
--- NOTE | 2025-04-11 14:28 | A.OFFVIS_ITS ---
Vital Signs 04/11/25 14:28 Height 5 ft 7 in Weight 205 lb 0.478 oz BMI 32.1 BP 120/72 Blood Pressure Location Lt brachial Position Sitting Pulse 74 Intake Visit Reasons: 1 yr f/up Intake Note: 1 year follow-up with ekg feeling good Collateral Specialist Required: No Allergies No Known Allergies (No Known Allergies*) Allergy (Verified 03/20/25 14:45) Medication List - Last Reconciled 04/11/25 by Dain Siddiqui MD amlodipine 5 mg PO DAILY ascorbate calcium (vitamin C) 500 mg PO DAILY atorvastatin 20 mg PO DAILY calcium carbonate (Calcium 500) 500 mg PO DAILY cholecalciferol (vitamin D3) 25 mcg PO DAILY glipizide ER 10 mg (2 x 5 mg) PO DAILY insulin glargine (Basaglar KwikPen U-100 Insulin) 40 units (0.4 mL) subcut DAILY latanoprost 0.005% drps ophthalmic (eye) magnesium 250 mg PO DAILY metformin ER 750 mg PO BID weuyksghwbtq-dlxj-ieior acid 18-400 mg-mcg (Centrum Complete) 1 tab PO DAILY omega 6-dbz-syp-fish oil 1,200 (144-216) mg (Fish Oil) 1,200 caps PO DAILY omeprazole 20 mg PO DAILY pen needle, diabetic (Ultra-Fine Pen Needle) USE ONCE DAILY DIRECTED sertraline 150 mg (1.5 x 100 mg) PO DAILY venlafaxine ER 150 mg PO DAILY vitamin R19-yupwc acid 500-400 mcg 1 tab PO DAILY vitamin E 200 units PO DAILY zinc 50 mg PO DAILY HPI Comments Details: Venessa comes for follow-up. She has been doing very well from cardiac perspective. She does regular exercise including aerobic activity and denies any exertional chest pain or shortness of breath. She has had no prolonged palpitation irregular heartbeat. Taking all her medications. Last LDL at mid 90s. Denies any heart failure symptoms. No lightheadedness, syncope. [facility] Medical History Screening for osteoporosis Tobacco use disorder Major depression in complete remission Hyperlipidemia Diabetes SVT (supraventricular tachycardia) HTN (hypertension) Surgical History History of colonoscopy (~05/13/17) History of ankle surgery Family History Father CVD (cardiovascular disease) Mother No problems noted. Social History Housing: House Alcohol intake: never Patient Tobacco Use Status: Former Tobacco user e-Cigarette/Vaping Use: Former Use service: No Current occupational status: retired Cognitive needs: No Hearing needs: No Vision needs: Yes (reading glasses) Review of Systems Const Denies chills, Denies fatigue, Denies fever(s), Denies frequent falls, Denies weakness, Denies weight gain and Denies weight loss ENT Denies dizziness Card Denies chest pain, Denies leg edema, Denies lightheadedness, Denies palpitations, Denies dyspnea, Denies dyspnea on exertion, Denies orthopnea and Denies other (loss of consciousness) Resp Denies cough, Denies dyspnea and Denies dyspnea on exertion GI Denies hematochezia and Denies change in stool character Musc Denies abnormal gait, Denies muscle weakness, Denies numbness, Denies radiating pain into limb and Denies tingling Neuro Denies abnormal gait, Denies dizziness, Denies frequent falls, Denies numbness, Denies tingling and Denies weakness Endo Denies fatigue and Denies palpitations Physical Exam Vital Signs: Last Vital Signs Pulse 74 04/11/25 14:28 BP 120/72 04/11/25 14:28 BMI result Body Mass Index 32.1 Const General: cooperative, healthy appearing, comfortable, no acute distress, alert and awake Nutritional Appearance: obese Orientation/consciousness: patient oriented x3 Limitations: no limitations Neck Neck: Yes normal visual inspection, Yes trachea midline, Yes supple and Yes no JVD Chest Chest palpation & inspection: normal inspection of the chest Resp Effort & Inspection: normal respiratory effort Auscultation: clear to auscultation bilaterally Cardio Jugular venous distension: no JVD Palpation: normal PMI Rate: regular rate Rhythm: regular rhythm Heart sounds: S1 normal heart sound present, S2 normal heart sound present and Other heart sounds present Peripheral pulses: Peripheral pulses 2+ throughout GI Inspection: Yes obesity Auscultation: normal bowel sounds Skin General skin exam: no rashes or lesions noted Neuro General: patient oriented x3 and no focal motor deficits Extrem General: Yes no clubbing, cyanosis or edema Psych Appearance: grossly normal Office Procedures EKG Details: EKG shows normal sinus rhythm with normal EKGs [id number]-[id number], Complete Assessment & Plan Assessment & Plan (1) SVT (supraventricular tachycardia): Code(s): I47.1 - Supraventricular tachycardia Category: Medical Plan: Prior history of SVT without any clinical recurrence. Currently not on any rate lowering medications. We discussed about vagal maneuvers. Avoidance of stimulants was discussed. No change in therapy unless Kallie's major recurrences requiring hospital presentation. (2) HTN (hypertension): Comment: - Blood pressure is well-controlled on amlodipine. - To continue on same regiment and monitor pressures at home Code(s): I10 - Essential (primary) hypertension Category: Medical Qualifiers: Hypertension type: primary hypertension Qualified Code(s): I10 - Essential (primary) hypertension Plan: Significant risk factors for vascular disease including hypotension. Hypertension is currently well optimized on amlodipine therapy. Continue the same. Continue aggressive management diabetes goal hemoglobin A1c less than 7%. Her LDL is not well optimized and would consider increasing statin to target goal LDL less than 70 mg/dL given her multiple risk factors. Smoking cessation was advised. Encouraged to continue to maintain activity level as tolerated. Advised to call me with any exertional symptoms. Will follow up in the clinic in 2 years time, sooner PRN. Thank you for allowing me to partake in her care Coding Level of Care Code Est Pt Level 4 (79581) Complex EM visit Add On G2211 Diagnoses SVT (supraventricular tachycardia) I47.1 Primary hypertension I10 Hypertension type: primary hypertension CPT Codes EKG - CPT: 69741-[id number], Complete ([id number])
--- OUTSIDE RECORDS SUMMARY | 2025-04-12 11:55 | XMS_ITS | Patient Health Record ---
Author Organization [facility] Address [address] [place] [address] Care Team Providers Care Aemt Name Role Phone Marina (RETIRED) Faraz SCHWARTZ Primary Care Provide r Unavailable Jose Goldberg Jr Unavailable [phone] Reason For Referral No Information Medications Medication [...] stop date) Current Smoker NA - NA Social History Drugs/Alcohol: Social Info Question Answer Notes Alcohol Screen Did you have a drink containing alcohol in the past year? Yes How often did you have a drink containing alcohol in the past year? 2 to 4 times a month (2 points) How many drinks did you have on a typical day when you were drinking in the past year? 1 or 2 drinks (0 point) How often did you have 6 or more drinks on one occasion in the past year? Never (0 point) Points 2 Interpretation Negative Tobacco Use: Social Info Question Answer Notes Tobacco Use/Smoking Patient is a current smoker When did you start smoking? age 26 How often do you smoke cigarettes? every day How many cigarettes a day do you smoke? 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 Problems Problem Type SNOMED Code ICD Code Onset Dates Problem Status W/U Status Risk Notes Problem Colon cancer screening (597293910) Colon cancer screening (Z12.11) Active confirmed Problem Long-term current use of antiplatelet drug (326970559594761 ) [facility] (current) use of aspirin (Z79.82) Active confirmed Problem Long-term current use of drug therapy (281783241) Long-term current use of high risk medication other than anticoagulant (Z79.899) Active confirmed Plan Of Treatment Future Test Test Name Order Date COLONOSCOPY 11/26/2016 Insurance Providers Payer Name Payer Address Payer Phone Subscriber Number Group Number Insured Name Patient Relationship to Insured Coverage Start Date Coverage End Date [facility] [employer] [address] [place] [address] [id number] PAUL REYNA Self - patient is the insured Medical (General) History Medical History History ICD Code type II diabetes hypercholesterolemia
== END 2025-04-11 14:47 | disposition home or self-care (01) ==
LOC: HO.HCS 14:27
PROVIDERS: PCP Internal Medicine; Visit Provider Internal Medicine Cardiovascular Disease
DX: I47.10 Supraventricular tachycardia, unspecified (principal); I10 Essential (primary) hypertension
CPT/HCPCS: 93010; 99214; G2211

== ENCOUNTER → 2025-04-11 14:27 | Outpatient (BNVA) | payer MEDICARE, SELFPAY | PROVIDERS: PCP Internal Medicine; Visit Provider Internal Medicine Cardiovascular Disease | DX: I10 Essential (primary) hypertension (principal); I47.10 Supraventricular tachycardia, unspecified; Z87.891 Personal history of nicotine dependence | CPT/HCPCS: 93005; 99212 ==